=== PATIENT | male | born 1970 | race Caucasian/White ===

== ENCOUNTER → 2021-10-23 07:33 | Outpatient (CLI) | payer OTHER, SELFPAY | PROVIDERS: PCP Family Medicine; Visit Provider Family Medicine | DX: Z23 Encounter for immunization (principal) ==

== ENCOUNTER 2025-05-23 11:50 | Inpatient (IN) | payer BC, SELFPAY ==
[2025-05-23] VITALS (16 sets, daily range): BP systolic 136–187; BP diastolic 81–104; PULSE 66–111; RESP 12–24; TEMP 36.6–36.9; O2SAT 96–99; BMI 46.2
--- NOTE | 2025-05-23 12:08 | EKG12_ITS ---
Test Reason : CP Blood Pressure : */* mmHG Vent. Rate : 105 BPM Atrial Rate : 105 BPM P-R Int : 154 ms QRS Dur : 92 ms QT Int : 336 ms P-R-T Axes : 21 -35 -16 degrees QTcB Int : 444 ms Sinus tachycardia Left axis deviation ST & T wave abnormality, consider anterolateral ischemia Abnormal ECG No previous ECGs available Confirmed by Alejandro Fermin ([id number]), assistant production editor REYES PATE ([id number]) on 05/26/2025 11:34:17 AM Referred By: Confirmed By: Alejandro Fermin
--- NOTE | 2025-05-23 12:09 | ED.VIS.CHEST ---
HPI History of Present Illness Chief Complaint: Chest Pain Informant: patient Onset/Context/Timing Onset: Yesterday Activity at onset: sudden Timing: Continuous Quality: Positive for Dull Location: Substernal Worsened By: Nothing and - Relieved By: - (Elevating his arms above his head) Associated Symptoms: Negative for Nausea, Vomiting, Diaphoresis, Dyspnea, Cough, Fever, Lightheadedness, Acid Reflux or Palpitations Narrative Narrative: Patient presents with chest pain that began yesterday. Patient states he was eating dinner yesterday when the pain began. Patient states it has been constant since yesterday. Patient describes it as dull. Patient states it is over the substernal area. Patient states it is better when he is able to elevate his arms above his head. Patient states nothing makes it worse. Patient denies any nausea or vomiting. Patient denies any shortness of breath or cough. Patient denies any diaphoresis or lightheadedness. Patient denies any palpitations. CVD Risk Factors: Positive for Hypercholesterolemia and Family History 1' </=55; Negative for Hypertension, Diabetes or Smoking PE Risk Factors: Negative for Recent Travel/Surgery, Recent Immobilization, Prior DVT or PE, Cancer or OCP + Smoking + >/=35 PFSH PFSH Medical History CKD (chronic kidney disease), stage II Morbid obesity Hypercholesterolemia Home Medications ?Medication ?Instructions ?Recorded ?Last Taken ?Type NK 05/23/25 Unknown History Allergy/AdvReac Type Severity Reaction Status Date / Time No Known Allergies Allergy Verified 05/23/25 11:52 Surgical History Hx of knee surgery Social History Smoking Status: Never smoker alcohol intake: current alcohol intake frequency: holidays/special occasions only Alcohol type: beer ROS ROS ED Constitutional Constitutional ED: Denies chills or fever(s) Eyes Eyes: Denies blurry vision or change in vision ENT ENT ED: Denies rhinorrhea or sore throat Cardiovascular Cardiovascular: Reports chest pain; Denies palpitations Respiratory/Chest Respiratory/Chest: Denies cough or dyspnea Gastrointestinal Gastrointestinal: Denies nausea or vomiting Genitourinary Genitourinary ED: Denies dysuria or hematuria Musculoskeletal Musculoskeletal: Denies back pain or neck pain Integumentary Denies abscess or rash Neurologic Neurologic: Denies headache(s) or weakness Allergic/Immunologic Allergic/Immunologic ED: Denies mouth swelling or urticaria EXAM Physical Exam Const Vital Signs: 05/23/25 11:51 05/23/25 12:22 05/23/25 12:27 Temperature 98.2 F Temperature Source Oral Pulse Rate 111 H 85 Respiratory Rate 18 Respiratory Effort Respiratory Pattern Blood Pressure 184/104 H 187/99 H Blood Pressure Mean 130 Pulse Ox 97 Oxygen Delivery Method Room Air Room Air 05/23/25 12:27 05/23/25 12:50 05/23/25 12:50 Temperature Temperature Source Pulse Rate 84 86 Respiratory Rate 20 H Respiratory Effort Normal Respiratory Pattern Normal Blood Pressure 142/81 H 142/81 H Blood Pressure Mean 101 Pulse Ox 98 Oxygen Delivery Method Room Air 05/23/25 13:14 05/23/25 13:15 05/23/25 13:18 Temperature Temperature Source Pulse Rate 91 83 89 Respiratory Rate 24 H 16 Respiratory Effort Respiratory Pattern Blood Pressure 143/85 H 143/85 H Blood Pressure Mean 103 Pulse Ox 98 97 Oxygen Delivery Method Room Air 05/23/25 13:30 05/23/25 13:45 05/23/25 14:00 Temperature Temperature Source Pulse Rate 78 66 69 Respiratory Rate 13 12 13 Respiratory Effort Respiratory Pattern Blood Pressure 145/85 H 138/83 H Blood Pressure Mean 103 99 Pulse Ox 96 98 98 Oxygen Delivery Method Room Air Room Air 05/23/25 15:00 Temperature Temperature Source Pulse Rate 86 Respiratory Rate 12 Respiratory Effort Respiratory Pattern Blood Pressure 158/96 H Blood Pressure Mean 116 Pulse Ox 99 Oxygen Delivery Method Room Air Positive well nourished and well developed Constitutional Narrative: BMI is 46.3. General Appearance ED: well developed and NAD HEENT Reports moist mucous membranes Neck supple and no JVD Resp normal respiratory effort and clear to auscultation bilaterally Cardio regular rate and regular rhythm GI soft to palpation, non-tender and non-distended Extremity normal to inspection Neuro oriented x3, CN's II-XII intact bilaterally and no sensory deficits noted Sensorium / Orientation: awake and alert Motor Exam: strength 5/5 throughout Psych mental status grossly normal Heart Score History: Slightly/Non-Suspicious ECG: Significant ST-Depression Age: >45 - <65 years Risk Factors: 1 or 2 Risk Factors Troponin: >1 - <3 Normal Limit Score: 5 MDM MDM MDM Narrative Medical decision making narrative: Differential diagnosis includes cardiac dysrhythmia, cardiac ischemia, electrolyte abnormality, pneumonia, bronchitis, pulmonary embolism, electrolyte abnormality, gastroesophageal reflux disease, and anxiety. EKG will be obtained to assess for cardiac dysrhythmia and cardiac ischemia chest x-ray will be obtained to assess for pneumonia or bronchitis. CBC will be obtained to assess for leukocytosis and anemia. Basic metabolic profile will be obtained to assess for electrolyte abnormality and renal function. High-sensitivity troponin will be obtained to assess for cardiac ischemia. D-dimer will be obtained to assess for pulmonary embolism. 2-hour repeat high-sensitivity troponin will be obtained to assess for ongoing cardiac ischemia. Lab Data Attestation: I reviewed the patient's lab results. Lab results narrative: CBC was reviewed and was within normal limits. D-dimer was repeated and was normal at 0.39. Basic metabolic profile was reviewed. Creatinine was slightly elevated at 1.26. The remainder is within normal limits. Initial high-sensitivity troponin was reviewed and was slightly elevated at 49. 2-hour repeat high-sensitivity troponin was reviewed and was elevated at 71. Labs: Laboratory Results - last 24 hr 05/23/25 05/23/25 12:15 14:07 WBC 5.4 RBC 5.46 Hgb 15.5 Hct 45.5 MCV 83.3 MCH 28.4 MCHC 34.1 RDW Std Deviation 38.2 RDW Coeff of Basil 12.7 Plt Count 167 MPV 10.0 Immature Gran % (Auto) 0.400 Neut % (Auto) 74.3 H Lymph % (Auto) 14.6 L Rowan % (Auto) 7.6 Eos % (Auto) 2.4 Baso % (Auto) 0.7 Absolute Neuts (auto) 4.0 Absolute Lymphs (auto) 0.79 L Nucleated RBC % 0 D-Dimer Quant (PE/DVT) 0.39 Sodium 135 Potassium 4.4 Chloride 102 Carbon Dioxide 22.4 Anion Gap 11 BUN 13 Creatinine 1.26 H Estim Creat Clear Calc 89.11 Est GFR (MDRD) Non-Af 67 BUN/Creatinine Ratio 10.3 Glucose 150 H Calcium 9.0 Troponin T High Sens 49 H Troponin T Hi Sens 2 Hr 71 H* Radiography Chest X-Ray - ED: 1 View, Read by ED Physician, Read by Radiologist and No Acute Disease Diagnostic Testing: Clinical Impression(s) from Imaging Studies Chest X-Ray 05/23/25 12:20 IMPRESSION: Negative Chest. Reading Location: [facility] Portable 1 view chest x-ray was obtained. On my independent interpretation, lung ball are clear. There is normal cardiac silhouette. Bony thorax is normal. There is no acute process noted. Radiologist also interpreted the x-ray and agrees. EKG Initial EKG: Attestation: I personally reviewed and interpreted this EKG as follows: Interpretation: Sinus Tachycardia (105) and S-T Depression (II, aVF, V3 through V6) Comments: EKG was obtained. On my independent interpretation, shows sinus tachycardia with rate of 105. NE interval is normal at 154 ms. QRS interval was normal at 92 ms. QTc interval was normal at 444 ms. There is left axis deviation -35. There is some nonspecific ST depression in leads II, aVF, and V3 through V6. There are no prior EKGs available for comparison. Prior EKG tracings: not available for review Prior: No Prior Management Discussion w/another healthcare provider: Hospitalist (Dr. Sanchez) and [employer] Pipe Gauger (Dr. Casper) Treatment and Re-Evaluation :: Patient was given aspirin and nitroglycerin initially. Patient had no improvement with nitroglycerin. Patient was given a dose of morphine. Patient felt better after this. Case was discussed with the hospitalist. She recommended contacting cardiology. Case was discussed with director of the biophysics facility. He recommended starting patient on heparin. This was ordered. Patient will be admitted to the hospitalist. Patient understood and was agreeable with the plan. All questions were answered. Discharge Plan Triage Chief Complaint: Chest Pain ED Provider: César De Paz Dx/Rx/DC Orders Clinical Impression: Non-STEMI (non-ST elevated myocardial infarction), Hypercholesterolemia, Chest pain, Elevated blood pressure reading without diagnosis of hypertension Prescriptions: No Action NK Primary Care Provider: Sotero Carrion Referrals: Sotero Carrion MD [Primary Care Provider] - Print Language: Luxembourgish Disposition Disposition: [facility]
--- NOTE | 2025-05-23 12:20 | RAD_ITS ---
PROCEDURE: CHEST 1 VIEW (PORTABLE) 05/23/2025 REASON FOR EXAM: CHEST PAIN TECHNIQUE: Frontal view of the chest. COMPARISON: None. FINDINGS: Hardware: None. Heart: The heart size is normal. Lungs: No focal consolidation, pleural effusion or pneumothorax. Bones: The bones are unremarkable. RAD/Chest 1 View (Portable) IMPRESSION: Negative Chest. Reading Location: [id number]
[2025-05-23] MEDS: Nitroglycerin SL (ED/IMG/CATH) 0.4 MG TABLET SL ×3 (12:22→13:18)
[2025-05-23 12:43] LABS: Hematocrit 45.5 % (40-54); Hemoglobin 15.5 g/dL (13.0-16.5); Immature Granulocytes Count 0.020 X10^3/uL (0.0-0.0); Mean Corp Hgb Conc 34.1 g/dL (32-36); Mean Corpuscular Volume 83.3 fL (80-94); Mean Platelet Vol. 10.0 fl (6.2-12.0); NRBC Flagged by Analyzer 0 % (0-5); Platelet Count 167 K/mm3 (150-450); RBC Distribution Width CV 12.7 % (11.6-14.6); RBC Distribution Width SD 38.2 fl (35.1-43.9); Red Blood Count 5.46 M/mm3 (4.6-6.2); White Blood Count 5.4 K/mm3 (4.4-11.0)
[2025-05-23 12:47] LABS: D-Dimer Quantitative (DVT/PE) 0.39 FEU/ug/m (0.27-0.49)
--- OUTSIDE RECORDS SUMMARY | 2025-05-23 12:51 | XMS RPT_ITS | CCD ---
Author Organization [facility] Inform ion Partnership [facility] Care Team Providers Care Business Strategy Manager Name Role Phone Jordy Ritchie MD Primary Care Provider [phone] Jordy Ritchie MD Primary Care Provider [phone] Robert CUADRA.CHEF SAUCIER, Vani Unavailable Gabriela Hutchins PA-C Unavailable [phone] JORDY RITCHIE Primary Care Unavailable Jordy Ritchie MD Primary Care Provider Allergies Allergy Classification Reported Allergen(s) Allergy Type Date of Onset Reaction(s) Facility (4 sources) Pravastatin; Translations: [PRAVASTATIN] Drug Allergy 02-09-2013 Intolerance [facility] Work Phone: Medications Current Medications Medication Drug Class(es) Dates Sig (Normalized) Sig (Original) aspirin 81 mg oral tablet (3 sources) Platelet Aggregation Inhibitor, Nonsteroidal Anti-inflammatory Drug Start: 07-02-2012 take 1 tablet by mouth once daily at mealtime Aspirin 81 mg Tab Indications: Family history of coronary artery disease Take 1 tablet by mouth once daily. Take with food. 30 tablet 11 07/02/2012 Active Comment on above: Take 1 tablet by robson th once daily. Take with food. doxycycline monohydrate 100 mg oral tablet (1 source) Tetracycline-class Drug Start: 09-04-2023 End: 09-09-2023 take 1 tablet by mouth twice daily doxycycline monohydrate 100 mg tablet Indications: Hordeolum externum of right upper eyelid , Skin infection Take 1 tablet by mouth two times a day for 5 days. 10 tablet 0 09/04/2023 09/09/2023 Active Comment on above: Take 1 tablet by robson th two times a day for 5 days. polymyxin b [id number] unt/ml / trimethoprim 1 mg/ml ophthalmic solution (1 source) Dihydrofolate Reductase Inhibitor Antibacterial, Polymyxin-class Antibacterial Start: 09-04-2023 End: 09-11-2023 take 1 drop(s) into the eye(s) every four hours trimethoprim-poly myxin (POLYTRIM) 10,000 unit- 1 mg/mL ophthalmic solution Indications: Hordeolum externum of right upper eyelid Use 1 Drop in the right eye every 4 hours for 7 days. 10 mL 0 09/04/2023 09/11/2023 Active Comment on above: Use 1 Drop in the ri ght eye every 4 hours for 7 days. simvastatin 10 mg oral tablet (3 sources) HMG-CoA Reductase Inhibitor Start: 10-20-2021 take 1 tablet by mouth once daily at bedtime for hyperlipidemia simvastatin (ZOCOR) 10 mg tablet Take 1 tablet by mouth daily at bedtime. For cholesterol. 90 tablet 1 10/20/2021 Active Comment on above: Take 1 tablet by robson th daily at bedtime. For cholesterol. Problems Active Problems Problem Classification Problem Date Documented Da te Episodic/Chronic Disorders of lipid metabolism (3 sources) Mixed hyperlipidemia; Translations: [Mixed hyperlipidemia] Onset: 12-23-2014 10-20-2015 Chronic Inflammation; infection of eye (except that caused by tuberculosis or sexually transmitteddisease) (1 source) Hordeolum externum of upper eyelid of right eye; Translations: [Hordeolum externum right upper eyelid] 09-04-2023 Episodic Other nutritional; endocrine; and metabolic disorders (3 sources) Body mass index 40+ - severely obese; Translations: [Morbid (severe) obesity due to excess calories] Onset: 03-20-2018 10-22-2019 Chronic Other upper respiratory infections (2 sources) Sore throat symptom; Translations: [Acute pharyngitis, unspecified] 01-26-2025 Episodic Skin and subcutaneous tissue infections (1 source) Infection of skin; Translations: [Local infection of the skin and subcutaneous tissue, unspecified] 09-04-2023 Episodic Past or Other Problems Problem Classification Problem Date Documented Da te Episodic/Chronic Blindness and vision defects (3 sources) Diplopia; Translations: [Diplopia] Onset: 11-13-2007 12-27-2021 Episodic Genitourinary symptoms and ill-defined conditions (3 sources) Microscopic hematuria; Translations: [Other microscopic hematuria] Onset: 04-30-2017 05-27-2017 Episodic Other circulatory disease (3 sources) Elevated blood-pressure reading without diagnosis of hypertension; Translations: [Elevated blood-pressure reading, without diagnosis of hypertension] Onset: 04-30-2017 04-30-2017 Episodic Residual codes; unclassified (3 sources) Family history of coronary arteriosclerosis; Translations: [Family history of ischemic heart disease and other diseases of the circulatory system] Onset: 07-02-2012 10-24-2016 Episodic Results Test Name Value Interpretation Reference Range Facil ity CNOVon 01-26-2025 CNOV Office Visit (UCWSTR ) ROBBIN,DEDRA Ploa ([id number]) 1970 M Date Time Provider Department 01/26/25 11:00 AM CLARE HOWELL [facility] During your visit today, we recorded the following information about you: Temperature Pulse Respiration Blood pressure 99.1 degrees 98/minute 16/minute 130/78 Weight 137.2 kg Clare Howell APRN.CNP 01/26/2025 11:31 AM Signed [facility] Subjective Dedra A Robbin is a 54 year old male. Patient presents with: Fever: Fever, MARY, sinus and congestion x 3 days Patient came in with complaints of fever congestion cough sore throat for 3 days. Patient says it does hurt worse to swallow. Patient denies any shortness of breath or other symptoms. Patient was exposed to influenza A. Patient said he did do a home test and it was negative. The history is provided by the patient. No screening technician was used. Fever Associated symptoms include sore throat and cough. Review of Systems Constitutional: Positive for fever. HENT: Positive for sinus pressure and sore throat. Respiratory: Positive for cough. Objective BP 130/78 Pulse 98 Temp 37.3 ?C (99.1 ?F) (Tympanic) Resp 16 Wt (!) 137.2 kg (302 lb 7.5 oz) SpO2 96% BMI 45.32 kg/m? Physical Exam Constitutional: Appearance: Normal appearance. HENT: Right Ear: Tympanic membrane, ear canal and external ear normal. Left Ear: Tympanic membrane, ear canal and external ear normal. Mouth/Throat: Mouth: Mucous membranes are moist. Eyes: Pupils: Pupils are equal, round, and reactive to light. Cardiovascular: Rate and Rhythm: Normal rate and regular rhythm. Heart sounds: Normal heart sounds. Pulmonary: Effort: Pulmonary effort is normal. Breath sounds: Normal breath sounds. Neurological: Mental Status: He is alert. PAST MEDICAL HISTORY Diagnosis Date Diplopia 09/23/2007 Was felt to be secondary to a blood flow issue with tilting head to right. Has been on baby ASA an no issue since. Family history of coronary artery disease 07/02/2012 Mixed hyperlipidemia 12/23/2014 Obesity, Class III, BMI 40-49.9 (morbid obesity) ([facility]) 03/20/2018 PAST SURGICAL HISTORY Procedure Laterality Date PAST SURGICAL HISTORY OF Left knee surgery, scare tissue remove ALLERGIES Pravastatin MEDICATIONS simvastatin (ZOCOR) 10 mg tablet Take 1 tablet by mouth daily at bedtime. For cholesterol. (Patient not taking: Reported on 01/26/2025) Aspirin 81 mg Tab Take 1 tablet by mouth once daily. Take with food. (Patient not taking: Reported on 01/26/2025) FAMILY HISTORY Problem Relation Age of Onset Diabetes Father Seizures Father possible epileptic Lipids Father Heart Mother leaking artery, bypass surgery (late 50's) Hypertension Mother Stroke Mother multiple, Rt upper ext weakness Coronary Artery Disease Mother 56 Coronary Artery Disease Brother Fatal [place] age 48 Stroke Sister 58 Social History Tobacco Use Smoking status: Never Smokeless tobacco: Never Vaping Use Vaping status: Never Used Substance Use Topics Alcohol use: Yes Comment: rarely Drug use: No {ASSESSMENT/PLAN: 1. Sore throat - ICD9: 462, ICD10: J02.9 (primary diagnosis) - Group A strep molecular testing negative - Discussed supportive care treatment with fluids, rest and analgesia. - Contagious dz precautions discussed- including considered contagious until on antibiotics for 24 hours - STREP A MOLECULAR (POC) 2. URI, acute - ICD9: 465.9, ICD10: J06.9 - Discussed viral etiology and rationale for treatment. - Symptomatic treatment with prn analgesia - Supportive care with fluids and rest - COVID AND INFLUENZA A/B AND RSV PCR, ROUTINE Clare Howell APRN.CHEF SAUCIER MDM Procedures Allergies As of Date: 01/26/2025 Noted Allergy Reaction PRAVASTATIN 02/09/2013 5 - Intolerance Comments: muscle pain Date Reviewed: 01/26/2025 Reviewed by: Shira Menjivar LPN - Fully Assessed Reason for Visit: Fever [47] Cmt: Fever, MARY, sinus and congestion x 3 days Primary Visit Diagnosis:Sore throat [J02.9] Other Visit Diagnosis:URI, acute [J06.9] Order(s):COVID AND INFLUENZA A/B AND RSV PCR, ROUTINE [SQCVFLRS] Order #: [id number]. #:[id number] STREP A MOLECULAR (POC) [2642181] Order #: [id number]. #:[id number] Prescriptions as of 01/26/2025 - simvastatin (ZOCOR) 10 mg tablet Take 1 tablet by mouth daily at bedtime. For cholesterol. - Aspirin 81 mg Tab Take 1 tablet by mouth once daily. Take with food. Problem List As Of Date 01/26/2025 Noted Resolved Diplopia [H53.2] 09/23/2007 Family history of coronary artery disease [Z82.*07/02/2012 Mixed hyperlipidemia [E78.2] 12/23/2014 Well adult exam [Z00.00] 10/20/2015 Microscopic hematuria [R31.29] 04/30/2017 Elevated blood pressure reading in office witho*04/30/2017 Obesity, Class III, BMI 40-49.9 (morbid obesity*03/20/2018 En (more content not included)... Normal [facility] STREP A MOLECULAR (POC)on Procedural Control Valid [facility] Strep A (POCT) Negative Negative [facility] Clin ic Vital Signs Date Time Vital Sign Value Performing Clinician Faci lity 01-26-2025 11:05-0400 Body mass index (BMI) [Ratio] 45.32 kg/m2 Clare Howell APRN.CNP Work Phone: [facility] 01-26-2025 11:05-0400 Body temperature 99.1 [degF] Clare Howell APRN.CHEF SAUCIER Work Phone: [facility] 01-26-2025 11:05-0400 Body weight 137.2 kg Clare Howell APRN.CHEF SAUCIER Work Phone: [facility] 01-26-2025 11:05-0400 Diastolic blood pressure 78 mm[Hg] Clare Howell APRN.CHEF SAUCIER Work Phone: [facility] 01-26-2025 11:05-0400 Heart rate 98 /min Clare Howell APRN.CHEF SAUCIER Work Phone: [facility] 01-26-2025 11:05-0400 Respiratory rate 16 /min Clare Howell APRN.CHEF SAUCIER Work Phone: [facility] 01-26-2025 11:05-0400 SaO2% (BldA) [Mass fraction] 96 % Clare Howell APRN.CHEF SAUCIER Work Phone: [facility] 01-26-2025 11:05-0400 Systolic blood pressure 130 mm[Hg] Clare Howell APRN.CHEF SAUCIER Work Phone: [facility] 09-04-2023 12:15-0400 Body temperature 98.1 [degF] Clare Howell APRN.CHEF SAUCIER Work Phone: [facility] 09-04-2023 12:15-0400 Body weight 135.04 kg Clare Howell APRN.CHEF SAUCIER Work Phone: [facility] 09-04-2023 12:15-0400 Diastolic blood pressure 70 mm[Hg] Clare Howell APRN.CHEF SAUCIER Work Phone: [facility] 09-04-2023 12:15-0400 Heart rate 68 /min Clare Howell APRN.CHEF SAUCIER Work Phone: [facility] 09-04-2023 12:15-0400 Respiratory rate 16 /min Clare Howell APRN.CHEF SAUCIER Work Phone: [facility] 09-04-2023 12:15-0400 SaO2% (BldA) [Mass fraction] 98 % Clare Howell APRN.CHEF SAUCIER Work Phone: [facility] 09-04-2023 12:15-0400 Systolic blood pressure 122 mm[Hg] Clare Howell APRN.CHEF SAUCIER Work Phone: [facility] Encounters Encounter Date Encounter Type Care Provider Facility Start: 01-26-2025 End: 03-28-2025 Follow-up encounter Clare Howell APRN.CHEF SAUCIER Work Phone: [facility] Start: 01-26-2025 End: 01-26-2025 ambulatory JORDY RITCHIE Facility:[facility] Start: 01-26-2025 End: 01-26-2025 Patient encounter procedure Clare Howell APRN.CHEF SAUCIER Work Phone: [facility] Comment on above: Sore throat (Primary Dx); URI, acute Start: 09-04-2023 End: 09-04-2023 Patient encounter procedure Clare Howell APRN.CHEF SAUCIER Work Phone: [facility] Comment on above: Hordeolum externum o f right upper eyelid (Primary Dx); Skin infection Start: 10-22-2019 Patient encounter status Clare Howell APRN.CHEF SAUCIER Work Phone: [facility] Work Phone: Procedures Date Procedure Procedure Detail Performing Clinician Start: 01-26-2025 STREP A MOLECULAR (POC) Clare Howell APRN.CHEF SAUCIER Work Phone: Start: 10-20-2021 Lipid 1996 panel - S lavinia or Plasma Clare Howell APRN.CHEF SAUCIER Work Phone: Plan of Treatment Date Care Activity Detail Author Start: 10-20-2026 Lipid 1996 panel - Serum or Plasma Lipid Screening [facility] Start: 10-20-2026 Lipid panel Lipid Screening [facility] Start: 07-12-2025 Influenza vaccination Influenza Vaccine (Season Ended) [facility] Start: 04-21-2025 Urine microalbumin profile DTaP,Tdap,Td Vaccine (2 - Td or Tdap) [facility] Start: 10-23-2024 Prostate Cancer Screening Discussion Prostate Cancer Screening Discussion [facility] Start: 10-23-2024 Prostate specific antigen measurement Prostate Cancer Screening Discussion [facility] Start: 10-20-2024 Diabetes Screening Diabetes Screening [facility] Start: 07-12-2024 Covid-19 Vaccine () Covid-19 Vaccine () [facility] Start: 07-12-2024 Influenza vaccination Influenza Vaccine (#1) [facility] Start: 07-12-2023 Covid-19 Vaccine () Covid-19 Vaccine () [facility] Start: 07-12-2023 Influenza vaccination Influenza Vaccine (#1) [facility] Start: 11-11-2022 Depression Assessment Depression Assessment [facility] Start: 2018 Pneumococcal Vaccine: 50+ (1 of 1 - PCV) Pneumococcal Vaccine: 50+ (1 of 1 - PCV) [facility] Start: 2018 Shingrix Vaccine (1 of 2) Shingrix Vaccine (1 of 2) [facility] Start: 2013 Cologuard (FIT-DNA) Cologuard (FIT-DNA) [facility] Start: 2013 Colonoscopy Colonoscopy [facility] Start: 2013 Colorectal Cancer Screening Colorectal Cancer Screening [facility] Start: [address] Colonography [facility] Start: 2013 Fecal Occult Blood Fecal Occult Blood [facility] Start: 2013 Screening for malignant neoplasm of colon [facility] Start: 2013 Sigmoidoscopy Sigmoidoscopy [facility] Start: 1987 Hepatitis B Vaccine (1 of 3 - 19+ 3-dose series) Hepatitis B Vaccine (1 of 3 - 19+ 3-dose series) [facility] Start: 1986 Anxiety Screening Anxiety Screening [facility] Start: 1986 Depression Screening Depression Screening [facility] Start: 1986 HIV Screening HIV Screening [facility] Start: 1986 HIV screening HIV Screening [facility] Start: 1968 Hepatitis B Vaccine (1 of 3 - 3-dose series) Hepatitis B Vaccine (1 of 3 - 3-dose series) [facility] COVID & INFLUENZA A/ B & RSV PCR, ROUTINE COVID & INFLUENZA A/B & RSV PCR, ROUTINE Microbiology Routine URI, acute 01/26/2025 11:23 AM EDT [facility] Work Phone: Immunizations Immunization Date Immunization Notes Care Provider Dennis kayaadalberto 10-24-2016 influenza virus vaccine, unspecified formulation Clare Howell APRN.CHEF SAUCIER Work Phone: [facility] 04-21-2015 tetanus toxoid, redu claudio diphtheria toxoid, and acellular pertussis vaccine, adsorbed Clare Howell APRN.CHEF SAUCIER Work Phone: [facility] Work Phone: 11-11-2002 tetanus and diphther ia toxoids, adsorbed, preservative free, for adult use (2 Lf of tetanus toxoid and 2 Lf of diphtheria toxoid) Clare Howell APRN.CHEF SAUCIER Work Phone: [facility] Work Phone: Payers Date Payer Category Payer [facility] PPO [id number] 2022 Unknown [id number] Social History Date Type Detail Facility Start: 09-04-2023 Tobacco smoking stat us MDIS Never smoked tobacco [facility] Start: 09-04-2023 Tobacco use and exposure Smoke less tobacco non-user [facility] Start: 09-04-2023 End: 01-26-2025 Alcohol intake Current drinker of alcohol (finding) [facility] Start: 10-16-2020 End: 10-19-2021 History of Social function [facility] Start: 10-16-2020 End: 10-19-2021 Social connection and isolation panel [facility] In a typical week, h ow many times do you talk on the telephone with family, friends, or neighbors? Patient refused [facility] Are you now , , , , never or living with a partner? Refused [facility] How often to you hav e a drink containing alcohol? Never [facility] Do you feel stress - tense, restless, nervous, or anxious, or unable to sleep at night because your mind is troubled all the time - these days [OSQ] To some extent [facility] (I/We) worried wheth er (my/our) food would run out before (I/we) got money to buy more. Never true [facility] In the past 12 month s, was there a time when you were not able to pay the mortgage or rent on time? No [facility] Start: 10-16-2019 Education 16 [facility] Start: 1970 Sex Assigned At Not on file C [facility] Functional Status Date Assessment Result Facility 04-21-2015 Are you deaf, or do you have serious difficulty hearing No 04/21/2015 8:23 AM EDT Lorena Lagunas LPN No [facility] 04-21-2015 Are you blind, or do you have serious difficulty seeing, even when wearing glasses No 04/21/2015 8:23 AM EDT Lorena Lagunas LPN No [facility] 04-21-2015 Do you have serious difficulty walking or climbing stairs No 04/21/2015 8:23 AM EDT Lorena Lagunas LPN No [facility] 04-21-2015 Do you have difficul ty dressing or bathing No 04/21/2015 8:23 AM EDT Lorena Lagunas LPN No [facility] 04-21-2015 Because of a physica l, mental, or emotional condition, do you have difficulty doing errands alone such as visiting a physician's office or shopping No 04/21/2015 8:23 AM EDT oLrena Lagunas LPN No [facility] Mental Status Date Assessment Result Facility 04-21-2015 Because of a physica l, mental, or emotional condition, do you have serious difficulty concentrating, remembering, or making decisions No 04/21/2015 8:23 AM EDT Lorena Lagunas BRENDON No [facility] Clinical Note 01-26-2025 Note Date & Type Note Facility 01-26-2025 Note SARS-COV-2 (AGENT OF COVID-19) RNA: Not detected INFLUENZA A RNA: Not detected INFLUENZA B RNA: Not detected RESPIRATORY SYNCYTIAL VIRUS (RSV) RNA: Not detected [facility] Comment on above: Performed By: #### [id number] #### [facility] CLIA [id number] [address] [place] [address] [facility] [place] Progress note 01-26-2025 Note Date & Type Note Facility 01-26-2025 Note HNO ID: [id number] Author: CLARE HOWELL APRN.CHEF SAUCIER Service: ? Author Type: Nurse Practitioner Type: Progress Notes Filed: 01/26/2025 11:31 Note Text: [facility] Subjective Dedra Romero is a 54 year old male. Patient presents with: Fever: Fever, MARY, sinus and congestion x 3 days Patient came in with complaints of fever congestion cough sore throat for 3 days. Patient says it does hurt worse to swallow. Patient denies any shortness of breath or other symptoms. Patient was exposed to influenza A. Patient said he did do a home test and it was negative. The history is provided by the patient. No screening technician was used. Fever Associated symptoms include sore throat and cough. Review of Systems Constitutional: Positive for fever. HENT: Positive for sinus pressure and sore throat. Respiratory: Positive for cough. Objective BP 130/78 Pulse 98 Temp 37.3 ?C (99.1 ?F) (Tympanic) Resp 16 Wt (!) 137.2 kg (302 lb 7.5 oz) SpO2 96% BMI 45.32 kg/m? Physical Exam Constitutional: Appearance: Normal appearance. HENT: Right Ear: Tympanic membrane, ear canal and external ear normal. Left Ear: Tympanic membrane, ear canal and external ear normal. Mouth/Throat: Mouth: Mucous membranes are moist. Eyes: Pupils: Pupils are equal, round, and reactive to light. Cardiovascular: Rate and Rhythm: Normal rate and regular rhythm. Heart sounds: Normal heart sounds. Pulmonary: Effort: Pulmonary effort is normal. Breath sounds: Normal breath sounds. Neurological: Mental Status: He is alert. PAST MEDICAL HISTORY Diagnosis Date Diplopia 09/23/2007 Was felt to be secondary to a blood flow issue with tilting head to right. Has been on baby ASA an no issue since. Family history of coronary artery disease 07/02/2012 Mixed hyperlipidemia 12/23/2014 Obesity, Class III, BMI 40-49.9 (morbid obesity) (HCC) 03/20/2018 PAST SURGICAL HISTORY Procedure Laterality Date PAST SURGICAL HISTORY OF Left knee surgery, scare tissue remove ALLERGIES Pravastatin MEDICATIONS simvastatin (ZOCOR) 10 mg tablet Take 1 tablet by mouth daily at bedtime. For cholesterol. (Patient not taking: Reported on 01/26/2025) Aspirin 81 mg Tab Take 1 tablet by mouth once daily. Take with food. (Patient not taking: Reported on 01/26/2025) FAMILY HISTORY Problem Relation Age of Onset Diabetes Father Seizures Father possible epileptic Lipids Father Heart Mother leaking artery, bypass surgery (late 50's) Hypertension Mother Stroke Mother multiple, Rt upper ext weakness Coronary Artery Disease Mother 56 Coronary Artery Disease Brother Fatal [place] age 48 Stroke Sister 58 Social History Tobacco Use Smoking status: Never Smokeless tobacco: Never Vaping Use Vaping status: Never Used Substance Use Topics Alcohol use: Yes Comment: rarely Drug use: No {ASSESSMENT/PLAN: 1. Sore throat - ICD9: 462, ICD10: J02.9 (primary diagnosis) - Group A strep molecular testing negative - Discussed supportive care treatment with fluids, rest and analgesia. - Contagious dz precautions discussed- including considered contagious until on antibiotics for 24 hours - STREP A MOLECULAR (POC) 2. URI, acute - ICD9: 465.9, ICD10: J06.9 - Discussed viral etiology and rationale for treatment. - Symptomatic treatment with prn analgesia - Supportive care with fluids and rest - COVID AND INFLUENZA A/B AND RSV PCR, ROUTINE Clare Howell APRN.ELIZABETH MDM Procedures [facility] History of Present illness Narrative 01-26-2025 Clare Howell APRN.CNP - 01/26/2025 11:12 AM EDT Note Date & Type Note Facility 01-26-2025 History of Presen t illness Narrative [facility] Subjective Dedra Romero is a 54 year old male. Patient presents with: Fever: Fever, MARY, sinus and congestion x 3 days Patient came in with complaints of fever congestion cough sore throat for 3 days. Patient says it does hurt worse to swallow. Patient denies any shortness of breath or other symptoms. Patient was exposed to influenza A. Patient said he did do a home test and it was negative. The history is provided by the patient. No screening technician was used. Fever Associated symptoms include sore throat and cough. Review of Systems Constitutional: Positive for fever. HENT: Positive for sinus pressure and sore throat. Respiratory: Positive for cough. Objective BP 130/78 Pulse 98 Temp 37.3 C (99.1 F) (Tympanic) Resp 16 Wt (!) 137.2 kg (302 lb 7.5 oz) SpO2 96% BMI 45.32 kg/m Physical Exam Constitutional: Appearance: Normal appearance. HENT: Right Ear: Tympanic membrane, ear canal and external ear normal. Left Ear: Tympanic membrane, ear canal and external ear normal. Mouth/Throat: Mouth: Mucous membranes are moist. Eyes: Pupils: Pupils are equal, round, and reactive to light. Cardiovascular: Rate and Rhythm: Normal rate and regular rhythm. Heart sounds: Normal heart sounds. Pulmonary: Effort: Pulmonary effort is normal. Breath sounds: Normal breath sounds. Neurological: Mental Status: He is alert. PAST MEDICAL HISTORY Diagnosis Date Diplopia 09/23/2007 Was felt to be secondary to a blood flow issue with tilting head to right. Has been on baby ASA an no issue since. Family history of coronary artery disease 07/02/2012 Mixed hyperlipidemia 12/23/2014 Obesity, Class III, BMI 40-49.9 (morbid obesity) ([facility]) 03/20/2018 PAST SURGICAL HISTORY Procedure Laterality Date PAST SURGICAL HISTORY OF Left knee surgery, scare tissue remove ALLERGIES Pravastatin MEDICATIONS simvastatin (ZOCOR) 10 mg tablet Take 1 tablet by mouth daily at bedtime. For cholesterol. (Patient not taking: Reported on 01/26/2025) Aspirin 81 mg Tab Take 1 tablet by mouth once daily. Take with food. (Patient not taking: Reported on 01/26/2025) FAMILY HISTORY Problem Relation Age of Onset Diabetes Father Seizures Father possible epileptic Lipids Father Heart Mother leaking artery, bypass surgery (late 50's) Hypertension Mother Stroke Mother multiple, Rt upper ext weakness Coronary Artery Disease Mother 56 Coronary Artery Disease Brother Fatal [place] age 48 Stroke Sister 58 Social History Tobacco Use Smoking status: Never Smokeless tobacco: Never Vaping Use Vaping status: Never Used Substance Use Topics Alcohol use: Yes Comment: rarely Drug use: No {ASSESSMENT/PLAN: 1. Sore throat - ICD9: 462, ICD10: J02.9 (primary diagnosis) - Group A strep molecular testing negative - Discussed supportive care treatment with fluids, rest and analgesia. - Contagious dz precautions discussed- including considered contagious until on antibiotics for 24 hours - STREP A MOLECULAR (POC) 2. URI, acute - ICD9: 465.9, ICD10: J06.9 - Discussed viral etiology and rationale for treatment. - Symptomatic treatment with prn analgesia - Supportive care with fluids and rest - COVID & INFLUENZA A/B & RSV PCR, ROUTINE Clare Howell APRN.ELIZABETH MDM Procedures documented in this encounter [facility] History of Present illness Narrative 09-04-2023 Clare Howell APRN.ELIZABETH - 09/04/2023 12:24 PM EDT Note Date & Type Note Facility 09-04-2023 History of Presen t illness Narrative Images from the original note were not included. Subjective She came in with complaints of red painful area on right upper eyelid. Patient gets a history of styes. Patient says it is a stye. Patient denies any vision changes pain. The history is provided by the patient. No screening technician was used. Eye Problem Review of Systems Constitutional: Negative. Skin: Negative. Objective Physical Exam Constitutional: Appearance: Normal appearance. Eyes: Comments: Erythema and firm raised area noted in the area marked above. Pulmonary: Effort: Pulmonary effort is normal. Neurological: Mental Status: He is alert. PAST MEDICAL HISTORY Diagnosis Date Diplopia 09/23/2007 Was felt to be secondary to a blood flow issue with tilting head to right. Has been on baby ASA an no issue since. Family history of coronary artery disease 07/02/2012 Mixed hyperlipidemia 12/23/2014 Obesity, Class III, BMI 40-49.9 (morbid obesity) ([facility]) 03/20/2018 PAST SURGICAL HISTORY Procedure Laterality Date PAST SURGICAL HISTORY OF Left knee surgery, scare tissue remove ALLERGIES Pravastatin MEDICATIONS simvastatin (ZOCOR) 10 mg tablet Take 1 tablet by mouth daily at bedtime. For cholesterol. Aspirin 81 mg Tab Take 1 tablet by mouth once daily. Take with food. trimethoprim-polymyxin (POLYTRIM) 10,000 unit- 1 mg/mL ophthalmic solution Use 1 Drop in the right eye every 4 hours for 7 days. doxycycline monohydrate 100 mg tablet Take 1 tablet by mouth two times a day for 5 days. FAMILY HISTORY Problem Relation Age of Onset Diabetes Father Seizures Father possible epileptic Lipids Father Heart Mother leaking artery, bypass surgery (late 50's) Hypertension Mother Stroke Mother multiple, Rt upper ext weakness Coronary Artery Disease Mother 56 Coronary Artery Disease Brother Fatal [place] age 48 Stroke Sister 58 Social History Tobacco Use Smoking status: Never Smokeless tobacco: Never Vaping Use Vaping Use: Never used Substance Use Topics Alcohol use: Yes Comment: rarely Drug use: No ASSESSMENT/PLAN: 1. Hordeolum externum of right upper eyelid - ICD9: 373.11, ICD10: H00.011 (primary diagnosis) - POLYMYXIN B SULFATE 10,000 UNIT-TRIMETHOPRIM 1 MG/ML EYE DROPS - DOXYCYCLINE MONOHYDRATE 100 MG TABLET 2. Skin infection - ICD9: 686.9, ICD10: L08.9 - DOXYCYCLINE MONOHYDRATE 100 MG TABLET Was educated about proper use of medication supportive therapies and red flag symptoms to watch for. Patient will follow-up if signs and symptoms seem to getting worse not better. Patient was okay with care plan. Clare Howell APRN.CNP documented in this encounter [facility] Evaluation note Note Date & Type Note Facility Evaluation note Diagnosis Hordeolum externum of right upper eyelid- Primary Hordeolum externum Skin infection Unspecified local infection of skin and subcutaneous tissue documented in this encounter [facility] Evaluation note Note Date & Type Note Facility Evaluation note Diagnosis Sore throat- Primary Acute pharyngitis URI, acute Acute upper respiratory infections of unspecified site documented in this encounter [facility] Summary Purpose Family History No Family History Records Found Advance Directives No Advanced Directives Records Found Additional Source Comments Source Comments (unrecognize d section and content) In the event this informatio n is protected by the Federal Confidentiality of Alcohol and Drug Abuse Patient Records regulations: The Federal rules restrict any use of the information to criminally investigate or prosecute any alcohol or drug abuse patient[facility] event this information is protected by the Federal Confidentiality of Alcohol and Drug Abuse Patient Records regulations: The Federal rules restrict any use of the information to criminally investigate or prosecute any alcohol or drug abuse patient.[facility] the event this information is protected by the Federal Confidentiality of Alcohol and Drug Abuse Patient Records regulations: The Federal rules restrict any use of the information to criminally investigate or prosecute any alcohol or drug abuse patient.[facility] Reason for Visit (unrecogniz ed section and content) Reason Comments Eye Problem Right eye. X3 and ge tting worse. Reason Comments Fever Fever, MARY, sinus and congestion x 3 days Care Teams (unrecognized sec tion and content) Business Strategy Manager Relationship Specialty Start Date End Date Jordy Ritchie MD [address] [place] [address] PCP - General Family Medicine 12/23/14 Business Strategy Manager Relationship Specialty Start Date End Date Jordy Ritchie MD [address] [place], [place] [id number] PCP - [facility] 12/23/14 Vani Jones APRN.CHEF SAUCIER [address] [place], [place] [id number] [facility] 10/17/24 Gabriela Hutchins PA-C [address] [place], [place] [id number] [facility] 10/17/24 Business Strategy Manager Relationship Specialty Start Date End Date Jordy Ritchie MD [address] [place], [place] [id number] PCP - [facility] 12/23/14 01/26/25 Vani Jones, KHALIF.CHEF SAUCIER [address] [place] [id number] [facility] 10/17/24 Gabriela Hutchins PA-C [address] [place], [place] [id number] [facility] 10/17/24 (unrecognized sect ion and content) No Status Records Found INFORMATION SOURCE (unrecogn ized section and content) DATE CREATED AUTHOR 01/28/2025 [facility] FOR RECORDS PERTAINING TO PATIENTS WHO ARE OR HAVE BEEN ENROLLED IN A CHEMICAL DEPENDENCY/SUBSTANCEABUSE PROGRAM, SOME INFORMATION MAY BE OMITTED. This clinical summary was aggregated from multiple sources. Caution should be exercised in using it in the provision of clinical care. This summary normalizes information from multiple sources, and as a consequence, information in this document may materially change the coding, format and clinical context of patient data. In addition, data may be omitted in some cases. CLINICAL DECISIONS SHOULD BE BASED ON THE PRIMARY CLINICAL RECORDS. [facility] provides no warranty or guarantee of the accuracy or completeness of information in this document.
--- NOTE | 2025-05-23 13:10 | CM.ED ---
Social Work Date of referral: 05/23/25 Reason for referral: No Advanced Care Directives (ACD's) on file Referred by: Social Work Identification Patient provided consent to Social Work visit. Ethnoarchaeologist requested a copy of ACD's which patient agreed to bring in. Madie Chiang, CREW MESS ATTENDANT, FASHION JOURNALIST
[2025-05-23 13:38] LABS: Anion Gap 11 (5-15); BUN 13 mg/dL (4-19); BUN/Creat Ratio 10.3 RATIO (10-20); Calcium,Total 9.0 mg/dL (7.6-11.0); Carbon Dioxide 22.4 mmol/L (21.0-32.0); Chloride 102 mmol/L (98-108); Estimated Creatinine Clearance 89.11 ml/min (50-250); Glucose 150 mg/dL (70-99); Potassium 4.4 mmol/L (3.3-5.1); Troponin T High Sensitivity 49 ng/L (<=22)
[2025-05-23 14:43] LABS: Troponin T High Sens 2 HR 71 ng/L (<=22)
--- NOTE | 2025-05-23 15:11 | PCM.HP.STD ---
HPI - General General Date of Admission: 05/23/25 Date of Service: 05/23/25 Chief Complaint: Chest pain. HPI Narrative The patient is a 54 y/o M w/ PMHx: Morbid obesity, HLD who presents to the [facility] ED on 05/23/2025 with history of onset of chest discomfort starting the day prior noted to be continuous and dull in the substernal region relieved with positional changes of his arms with no associated nausea, emesis, diaphoresis or dyspnea originally starting during dinner the day prior and given ongoing persistent discomfort prompted eventual ED evaluation to be cautious. In the ED patient notes that chest discomfort currently is primarily focused in the left substernal region however previously he did note it would occasionally radiate directly toward his back as well. He notes previous to any ED interventions his pain was 8-9 out of 10 in severity, currently down to 3-4 out of 10 in severity following morphine and nitroglycerin. Workup in the ED included T98.2, heart rate 111, BP 184/104, respiratory rate 18, 97% on room air with most recent repeat vitals heart rate 69, BP 138/83, respiratory rate 13, 98% room air, CBC with WBC 5.4, hemoglobin 15.5, platelet 167 with lymphopenia, D-dimer 0.39, BMP with BUN/creatinine 13/1.26, GFR 67, glucose 150, troponin initial 49 with repeat delta 71, chest x-ray with no acute cardiopulmonary findings, EKG with sinus tachycardia with ST depression in leads II, aVF, V3 through V6 with no prior EKGs for comparison. In the ED patient administered full-strength aspirin therapy, morphine 4 mg IV x 1, sublingual nitroglycerin in addition to heparin drip. ED physician noted intention to discuss case with Cardiology given NSTEMI presentation. [facility] Medical History CKD (chronic kidney disease), stage II Morbid obesity Hypercholesterolemia Home Medications ?Medication ?Instructions ?Recorded ?Last Taken ?Type NK 05/23/25 Unknown History Allergy/AdvReac Type Severity Reaction Status Date / Time No Known Allergies Allergy Verified 05/23/25 11:52 Family History (Updated 05/23/25 @ 15:[address] Odessa Sanchez MD) Mother Heart disease Hypertension Diabetes CVA (cerebral vascular accident) Father Heart disease Hypertension Diabetes Surgical History (Updated 05/23/25 @ 15:[address] Odessa Sanchez MD) Status post wisdom tooth extraction Hx of knee surgery Social History (Updated 05/23/25 @ 15:[address] Odessa Sanchez MD) household members: spouse Smoking Status: Never smoker alcohol intake: current alcohol intake frequency: holidays/special occasions only Alcohol type: beer substance use type: does not use ROS ROS Narrative Admission Review of Systems: CONSTITUTIONAL: No weight loss, fever, chills, + weakness or fatigue. HEENT: Eyes: No visual loss, blurred vision, double vision or yellow sclerae. Ears, Nose, Throat: No hearing loss, sneezing, congestion, runny nose or sore throat. SKIN: No rash or itching, lesions, wounds. CARDIOVASCULAR:+ Chest pain. No palpitations, edema, orthopnea, syncopal events. RESPIRATORY: No shortness of breath, cough or sputum, wheezing, hemoptysis. GASTROINTESTINAL: No anorexia, nausea, vomiting or diarrhea, abdominal pain, melena, BRBPR. GENITOURINARY: No dysuria, frequency, urgency or retention. NEUROLOGICAL: No headache, dizziness, syncope, paralysis, ataxia, numbness or tingling in the extremities, focal weakness, change in bowel or bladder control, seizure. MUSCULOSKELETAL: + muscle, back pain, joint pain or stiffness. HEMATOLOGIC: No anemia, bleeding or bruising. LYMPHATICS: No enlarged nodes. No history of splenectomy. PSYCHIATRIC: No history of depression or anxiety. ENDOCRINOLOGIC: No reports of sweating, cold or heat intolerance. No polyuria or polydipsia. ALLERGIES: No history of asthma, hives, eczema or rhinitis. Vital Signs Vital Signs Vital Signs: 05/23/25 11:51 05/23/25 12:22 05/23/25 12:27 Temperature 98.2 F Temperature Source Oral Pulse Rate 111 H 85 Respiratory Rate 18 Respiratory Effort Respiratory Pattern Blood Pressure 184/104 H 187/99 H Blood Pressure Mean 130 Pulse Ox 97 Oxygen Delivery Method Room Air Room Air 05/23/25 12:27 05/23/25 12:50 05/23/25 12:50 Temperature Temperature Source Pulse Rate 84 86 Respiratory Rate 20 H Respiratory Effort Normal Respiratory Pattern Normal Blood Pressure 142/81 H 142/81 H Blood Pressure Mean 101 Pulse Ox 98 Oxygen Delivery Method Room Air 05/23/25 13:14 05/23/25 13:15 05/23/25 13:18 Temperature Temperature Source Pulse Rate 91 83 89 Respiratory Rate 24 H 16 Respiratory Effort Respiratory Pattern Blood Pressure 143/85 H 143/85 H Blood Pressure Mean 103 Pulse Ox 98 97 Oxygen Delivery Method Room Air 05/23/25 13:30 05/23/25 13:45 05/23/25 14:00 Temperature Temperature Source Pulse Rate 78 66 69 Respiratory Rate 13 12 13 Respiratory Effort Respiratory Pattern Blood Pressure 145/85 H 138/83 H Blood Pressure Mean 103 99 Pulse Ox 96 98 98 Oxygen Delivery Method Room Air Room Air 05/23/25 15:00 Temperature Temperature Source Pulse Rate 86 Respiratory Rate 12 Respiratory Effort Respiratory Pattern Blood Pressure 158/96 H Blood Pressure Mean 116 Pulse Ox 99 Oxygen Delivery Method Room Air Weight Weight: 304 lb 4 oz Body Mass Index (BMI) 46.2 Physical Exam Narrative Physical Examination: General: Awake, alert, oriented x 3 and cooperative, seated upright in the ED, notes chest discomfort is improved but still 3-4 maximum out of 10 in severity. Skin: Normal color, normal turgor, no icterus, no cyanosis except occasional stage ecchymoses, abrasion. HEENT: AT/NC, EOMI, PERRLA, MMM, no carotid bruits, difficult to discern JVD given thickened neck. Lungs: CTA bilaterally, moderate effort, mild decrease BL bases, no rales, ronchi or wheezing. Heart: Regular rate and rhythm; no gallop, rub audible. Abdomen: Soft, morbidly obese, NTTP, distant BS, difficult to discern distention and HSM given habitus. Extremities: No cyanosis, no clubbing, pedal to mid underwood chronic edema not markedly pitting. Neurological: Patient awake, alert, oriented as noted, cognitive function intact; pupils equally reactive to light and accommodation, cranial nerves grossly normal, moving all 4 extremities, no focal deficits, strength mildly to moderately globally decreased secondary to acute presentation complaints. Psychiatric: Affect appears normal, no acute evidence of depressive or anxiety feelings. Results Lab / Micro Data 05/23/25 12:15 05/23/25 12:15 Labs: Laboratory Results - last 24 hr 05/23/25 12:15: WBC 5.4, RBC 5.46, Hgb 15.5, Hct 45.5, MCV 83.3, MCH 28.4, MCHC 34.1, RDW Std Deviation 38.2, RDW Coeff of Basil 12.7, Plt Count 167, MPV 10.0, Immature Gran % (Auto) 0.400, Neut % (Auto) 74.3 H, Lymph % (Auto) 14.6 L, [place] % (Auto) 7.6, Eos % (Auto) 2.4, Baso % (Auto) 0.7, Absolute Neuts (auto) 4.0, Absolute Lymphs (auto) 0.79 L, Nucleated RBC % 0, D-Dimer Quant (PE/DVT) 0.39, Sodium 135, Potassium 4.4, Chloride 102, Carbon Dioxide 22.4, Anion Gap 11, BUN 13, Creatinine 1.26 H, Estim Creat Clear Calc 89.11, Est GFR (MDRD) Non-Af 67, BUN/Creatinine Ratio 10.3, Glucose 150 H, Calcium 9.0, Troponin T High Sens 49 H 05/23/25 14:07: Troponin T Hi Sens 2 Hr 71 H* Imaging Radiology Impression Chest X-Ray 05/23/25 12:20 IMPRESSION: Negative Chest. Reading Location: [id number] Assessment & Plan Assessment/Plan (1) Chest pain: PLAN: Plan The patient is a 54 y/o M w/ PMHx: Morbid obesity, HLD who presents to the [facility] ED on 05/23/2025 with history of onset of chest discomfort starting the day prior noted to be continuous and dull in the substernal region relieved with positional changes of his arms with no associated nausea, emesis, diaphoresis or dyspnea originally starting during dinner the day prior and given ongoing persistent discomfort prompted eventual ED evaluation. #1. Chest Pain with elevated cardiac enzyme ruling in for NSTEMI with EKG ST depressions however no comparison: EKG with sinus tachycardia with ST depression in leads II, aVF, V3 through V6 with no prior EKGs for comparison, CXR without acute cardiopulmonary findings, initial trop 49 with repeat delta 71. Will admit to PCU, place on a monitored bed with serial cardiac enzymes and EKGs. Given significant EKG findings and troponin rising we will request cardiology consultation. Will maintain on heparin drip. Will continue aspirin therapy. Magnesium level requested. FLP in AM. ECHO requested. Will judiciously hydrate especially given #5 and unclear renal baseline. NPO at midnight. ASA, NG, morphine. #2. Elevated BP without hypertensive diagnosis: Patient with elevated BP in the ED upon arrival, BP did improve however patient was administered morphine and sublingual nitroglycerin, will add BB therapy given #1, add further pending response or cardiology discretion, as needed IV hydralazine in the interim. #3. Hyperglycemia without diabetic history: Presentation glucose 150, will obtain hemoglobin A1c and if consistent with diabetes will initiate ADA diet with Accu-Cheks with insulin sliding scale as well as nutrition consultation. #4. Hyperlipidemia: Per regimen not on any statin therapy, adding high dose given #1, FLP requested #5. Possible Chronic Kidney Disease Stage II per current GFR trending but no comparison thus uncertain: Admission BUN/Cr 13/.26, GFR 67, baseline renal function unknown, repeat BMP in AM to further elucidate chronicity. #6. Morbid Obesity: Weight loss and lifestyle changes encouraged. #7. Possible underlying LANE: From discussion with patient and spouse concern for possible LANE, will place on trending pulse ox. #8. DVT prophylaxis: Heparin drip. #9. CODE status: Full Code. Patient who is present is his healthcare power of attorney recruiter and living will is in place. Charges/Coding Visit Charges Inpatient E&M: 84634 Init Hosp L3
--- NOTE | 2025-05-23 15:21 | EKG12_ITS ---
Test Reason : CP Blood Pressure : */* mmHG Vent. Rate : 77 BPM Atrial Rate : 77 BPM P-R Int : 160 ms QRS Dur : 86 ms QT Int : 374 ms P-R-T Axes : 15 -20 -1 degrees QTcB Int : 423 ms Normal sinus rhythm Nonspecific ST abnormality Abnormal ECG Confirmed by Alejandro Fermin ([id number]), editor & co founder REYES PATE ([id number]) on 05/24/2025 1:03:37 PM Referred By: Confirmed By: Alejandro Fermin
--- OUTSIDE RECORDS SUMMARY | 2025-05-23 15:38 | XMS RPT_ITS | CCD ---
Author Organization [facility] Inform ion Partnership [facility] Care Team Providers Care Distribution Tech Name Role Phone Jordy Ritchie MD Primary Care Provider Jordy Ritchie MD Primary Care Provider [phone] Robert CUADRA.PAINT AND TABLE EDGER, Vani Unavailable Gabriela Hutchins PA-C Unavailable JORDY RITCHIE Primary Care Unavailable Jordy Ritchie MD Primary Care Provider Allergies Allergy Classification Reported Allergen(s) Allergy Type Date of Onset Reaction(s) Facility (4 sources) Pravastatin; Translations: [PRAVASTATIN] Drug Allergy 02-09-2013 Intolerance [facility] Work Phone: Medications Current Medications Medication [...] a day for 5 days. polymyxin b 96727 unt/ml / trimethoprim 1 mg/ml ophthalmic solution [...] 01-26-2025 CNOV Office Visit (UCWSTR ) ROBBIN,DEDRA Pola ([id number]) 1970 M Date Time Provider Department 01/26/25 11:00 AM CLARE HOWELL RUST During your visit today, we recorded the [...] history is provided by the patient. No wealth management director was used. Fever Associated symptoms include sore [...] Obesity, Class III, BMI 40-49.9 (morbid obesity) ([facility]) 03/20/2018 PAST SURGICAL HISTORY Procedure Laterality Date [...] Mother 56 Coronary Artery Disease Brother Fatal CO age 48 Stroke Sister 58 Social History [...] A/B AND RSV PCR, ROUTINE Clare Howell APRN.PAINT AND TABLE EDGER MDM Procedures Allergies As of Date: 01/26/2025 [...] AND RSV PCR, ROUTINE [[id number]] Order #: [id number]. #:[id number] STREP A MOLECULAR (POC) [[id number]] Order #: [id number]. #:[id number] Prescriptions as of 01/26/2025 - simvastatin (ZOCOR) [...] obesity*03/20/2018 En (more content not included)... Normal [facility] STREP A MOLECULAR (POC)on Procedural Control Valid [facility] Strep A (POCT) Negative Negative [facility] Clin ic Vital Signs Date Time Vital Sign Value Performing Clinician Faci lity 01-26-2025 11:05-0400 Body mass index (BMI) [Ratio] 45.32 kg/m2 Clare Howell APRN.CNP Work Phone: [facility] 01-26-2025 11:05-0400 Body temperature 99.1 [degF] Clare Howell APRN.PAINT AND TABLE EDGER Work Phone: [facility] 01-26-2025 11:05-0400 Body weight 137.2 kg Clare Howell APRN.PAINT AND TABLE EDGER Work Phone: [facility] 01-26-2025 11:05-0400 Diastolic blood pressure 78 mm[Hg] Clare Howell APRN.PAINT AND TABLE EDGER Work Phone: [facility] 01-26-2025 11:05-0400 Heart rate 98 /min Clare Howell APRN.PAINT AND TABLE EDGER Work Phone: [facility] 01-26-2025 11:05-0400 Respiratory rate 16 /min Clare Howell APRN.PAINT AND TABLE EDGER Work Phone: [facility] 01-26-2025 11:05-0400 SaO2% (BldA) [Mass fraction] 96 % Clare Howell APRN.PAINT AND TABLE EDGER Work Phone: [facility] 01-26-2025 11:05-0400 Systolic blood pressure 130 mm[Hg] Clare Howell APRN.PAINT AND TABLE EDGER Work Phone: [facility] 09-04-2023 12:15-0400 Body temperature 98.1 [degF] Clare Howell APRN.PAINT AND TABLE EDGER Work Phone: [facility] 09-04-2023 12:15-0400 Body weight 135.04 kg Clare Howell APRN.PAINT AND TABLE EDGER Work Phone: [facility] 09-04-2023 12:15-0400 Diastolic blood pressure 70 mm[Hg] Clare Howell APRN.PAINT AND TABLE EDGER Work Phone: [facility] 09-04-2023 12:15-0400 Heart rate 68 /min Clare Howell APRN.PAINT AND TABLE EDGER Work Phone: [facility] 09-04-2023 12:15-0400 Respiratory rate 16 /min Clare Howell APRN.PAINT AND TABLE EDGER Work Phone: [facility] 09-04-2023 12:15-0400 SaO2% (BldA) [Mass fraction] 98 % Clare Howell APRN.PAINT AND TABLE EDGER Work Phone: [facility] 09-04-2023 12:15-0400 Systolic blood pressure 122 mm[Hg] Clare Howell APRN.PAINT AND TABLE EDGER Work Phone: [facility] Encounters Encounter Date Encounter Type Care Provider Facility Start: 01-26-2025 End: 03-28-2025 Follow-up encounter Clare Howell APRN.PAINT AND TABLE EDGER Work Phone: [facility] Start: 01-26-2025 End: 01-26-2025 ambulatory JORDY RITCHIE Facility:[facility] Start: 01-26-2025 End: 01-26-2025 Patient encounter procedure Clare Howell APRN.PAINT AND TABLE EDGER Work Phone: [facility] Comment on above: Sore throat (Primary Dx); URI, acute Start: 09-04-2023 End: 09-04-2023 Patient encounter procedure Clare Howell APRN.PAINT AND TABLE EDGER Work Phone: [facility] Comment on above: Hordeolum externum o f right upper eyelid (Primary Dx); Skin infection Start: 10-22-2019 Patient encounter status Clare Howell APRN.PAINT AND TABLE EDGER Work Phone: [facility] Work Phone: Procedures Date Procedure Procedure Detail Performing Clinician Start: 01-26-2025 STREP A MOLECULAR (POC) Clare Howell APRN.PAINT AND TABLE EDGER Work Phone: Start: 10-20-2021 Lipid 1996 panel - S lavinia or Plasma Clare Howell APRN.PAINT AND TABLE EDGER Work Phone: Plan of Treatment Date Care Activity Detail Author Start: 10-20-2026 Lipid 1996 panel - Serum or Plasma Lipid Screening [facility] Start: 10-20-2026 Lipid panel Lipid Screening [facility] Start: 07-12-2025 Influenza vaccination Influenza Vaccine (Season Ended) [facility] Start: 04-21-2025 Urine microalbumin profile DTaP,Tdap,Td Vaccine (2 - Td or Tdap) [facility] Start: 10-23-2024 Prostate Cancer Screening Discussion Prostate Cancer Screening Discussion [facility] Start: 10-23-2024 Prostate specific antigen measurement Prostate Cancer Screening Discussion [facility] Start: 10-20-2024 Diabetes Screening Diabetes Screening [facility] Start: 07-12-2024 Covid-19 Vaccine () Covid-19 Vaccine () [facility] Start: 07-12-2024 Influenza vaccination Influenza Vaccine (#1) [facility] Start: 07-12-2023 Covid-19 Vaccine () Covid-19 Vaccine () [facility] Start: 07-12-2023 Influenza vaccination Influenza Vaccine (#1) [facility] Start: 11-11-2022 Depression Assessment Depression Assessment [facility] Start: 2018 Pneumococcal Vaccine: 50+ (1 of 1 - PCV) Pneumococcal Vaccine: 50+ (1 of 1 - PCV) [facility] Start: 2018 Shingrix Vaccine (1 of 2) Shingrix Vaccine (1 of 2) [facility] Start: 2013 Cologuard (FIT-DNA) Cologuard (FIT-DNA) [facility] Start: 2013 Colonoscopy Colonoscopy [facility] Start: 2013 Colorectal Cancer Screening Colorectal Cancer Screening [facility] Start: [address] Colonography [facility] Start: 2013 Fecal Occult Blood Fecal Occult Blood [facility] Start: 2013 Screening for malignant neoplasm of colon [facility] Start: 2013 Sigmoidoscopy Sigmoidoscopy [facility] Start: 1987 Hepatitis B Vaccine (1 of 3 - 19+ 3-dose series) Hepatitis B Vaccine (1 of 3 - 19+ 3-dose series) [facility] Start: 1986 Anxiety Screening Anxiety Screening [facility] Start: 1986 Depression Screening Depression Screening [facility] Start: 1986 HIV Screening HIV Screening [facility] Start: 1986 HIV screening HIV Screening [facility] Start: 1968 Hepatitis B Vaccine (1 of 3 - 3-dose series) Hepatitis B Vaccine (1 of 3 - 3-dose series) [facility] COVID & INFLUENZA A/ B & RSV PCR, ROUTINE COVID & INFLUENZA A/B & RSV PCR, ROUTINE Microbiology Routine URI, acute 01/26/2025 11:23 AM EDT [facility] Work Phone: Immunizations Immunization Date Immunization Notes Care Provider Dennis kayaadalberto 10-24-2016 influenza virus vaccine, unspecified formulation Clare Howell APRN.PAINT AND TABLE EDGER Work Phone: [facility] 04-21-2015 tetanus toxoid, redu claudio diphtheria toxoid, and acellular pertussis vaccine, adsorbed Clare Howell APRN.PAINT AND TABLE EDGER Work Phone: [facility] Work Phone: 11-11-2002 tetanus and diphther ia toxoids, adsorbed, preservative free, for adult use (2 Lf of tetanus toxoid and 2 Lf of diphtheria toxoid) Clare Howell APRN.PAINT AND TABLE EDGER Work Phone: [facility] Work Phone: Payers Date Payer Category Payer [facility] PPO [id number] 2022 Unknown [id number] Social History Date Type Detail Facility Start: 09-04-2023 Tobacco smoking stat us GAIS Never smoked tobacco [facility] Start: 09-04-2023 Tobacco use and exposure Smoke less tobacco non-user [facility] Start: 09-04-2023 End: 01-26-2025 Alcohol intake Current drinker of alcohol (finding) [facility] Start: 10-16-2020 End: 10-19-2021 History of Social function [facility] Start: 10-16-2020 End: 10-19-2021 Social connection and isolation panel [facility] In a typical week, h ow many times do you talk on the telephone with family, friends, or neighbors? Patient refused [facility] Are you now , , , , never or living with a partner? Refused [facility] How often to you hav e a drink containing alcohol? Never [facility] Do you feel stress - tense, restless, nervous, or anxious, or unable to sleep at night because your mind is troubled all the time - these days [OSQ] To some extent [facility] (I/We) worried wheth er (my/our) food would run out before (I/we) got money to buy more. Never true [facility] In the past 12 month s, was there a time when you were not able to pay the mortgage or rent on time? No [facility] Start: 10-16-2019 Education 16 [facility] Start: 1970 Sex Assigned At Not on file C [facility] Functional Status Date Assessment Result Facility 04-21-2015 Are you deaf, or do you have serious difficulty hearing No 04/21/2015 8:23 AM EDT Lorena Lagunas LPN No [facility] 04-21-2015 Are you blind, or do you have serious difficulty seeing, even when wearing glasses No 04/21/2015 8:23 AM EDT Lorena Lagunas LPN No [facility] 04-21-2015 Do you have serious difficulty walking or climbing stairs No 04/21/2015 8:23 AM EDT Lorena Lagunas LPN No [facility] 04-21-2015 Do you have difficul ty dressing or bathing No 04/21/2015 8:23 AM EDT Lorena Lagunas LPN No [facility] 04-21-2015 Because of a physica l, mental, or emotional condition, do you have difficulty doing errands alone such as visiting a physician's office or shopping No 04/21/2015 8:23 AM EDT Lorena Lagunas LPN No [facility] Mental Status Date Assessment Result Facility 04-21-2015 Because of a physica l, mental, or emotional condition, do you have serious difficulty concentrating, remembering, or making decisions No 04/21/2015 8:23 AM EDT Lorena Lagunas BRENDON No [facility] Clinical Note 01-26-2025 Note Date & Type Note Facility 01-26-2025 Note SARS-COV-2 (AGENT OF COVID-19) RNA: Not detected INFLUENZA A RNA: Not detected INFLUENZA B RNA: Not detected RESPIRATORY SYNCYTIAL VIRUS (RSV) RNA: Not detected [facility] Comment on above: Performed By: #### 9 [id number] #### [facility] CLIA [id number] [address] [place] [address] [place] Progress note 01-26-2025 Note Date & Type Note Facility 01-26-2025 Note HNO ID: [id number] Author: CLARE HOWELL APRN.PAINT AND TABLE EDGER Service: ? Author Type: Nurse Practitioner Type: [...] history is provided by the patient. No wealth management director was used. Fever Associated symptoms include sore [...] Mother 56 Coronary Artery Disease Brother Fatal CO age 48 Stroke Sister 58 Social History [...] AND INFLUENZA A/B AND RSV PCR, ROUTINE Claer Howell APRN.ELIZABETH MDM Procedures [facility] History of Present illness Narrative 01-26-2025 [...] history is provided by the patient. No wealth management director was used. Fever Associated symptoms include sore [...] Obesity, Class III, BMI 40-49.9 (morbid obesity) ([facility]) 03/20/2018 PAST SURGICAL HISTORY Procedure Laterality Date [...] Mother 56 Coronary Artery Disease Brother Fatal CO age 48 Stroke Sister 58 Social History [...] APRN.ELIZABETH MDM Procedures documented in this encounter [facility] History of Present illness Narrative 09-04-2023 [...] history is provided by the patient. No wealth management director was used. Eye Problem Review of Systems [...] Obesity, Class III, BMI 40-49.9 (morbid obesity) ([facility]) 03/20/2018 PAST SURGICAL HISTORY Procedure Laterality Date [...] Mother 56 Coronary Artery Disease Brother Fatal CO age 48 Stroke Sister 58 Social History [...] Clare Howell APRN.CNP documented in this encounter [facility] Evaluation note Note Date & Type Note Facility Evaluation note Diagnosis Hordeolum externum of right upper eyelid- Primary Hordeolum externum Skin infection Unspecified local infection of skin and subcutaneous tissue documented in this encounter [facility] Evaluation note Note Date & Type Note Facility Evaluation note Diagnosis Sore throat- Primary Acute pharyngitis URI, acute Acute upper respiratory infections of unspecified site documented in this encounter [facility] Summary Purpose Family History No Family [...] or prosecute any alcohol or drug abuse patient.[facility] the event this information is protected by the Federal Confidentiality of Alcohol and Drug Abuse Patient Records regulations: The Federal rules restrict any use of the information to criminally investigate or prosecute any alcohol or drug abuse patient.[facility] the event this information is protected by the Federal Confidentiality of Alcohol and Drug Abuse Patient Records regulations: The Federal rules restrict any use of the information to criminally investigate or prosecute any alcohol or drug abuse patient.[facility] Reason for Visit (unrecogniz ed section and content) Reason Comments Eye Problem Right eye. X3 and ge tting worse. Reason Comments Fever Fever, MARY, sinus and congestion x 3 days Care Teams (unrecognized sec tion and content) Distribution Tech Relationship Specialty Start Date End Date Jordy Ritchie MD [address] [place] [address] PCP - General Family Medicine 12/23/14 Distribution Tech Relationship Specialty Start Date End Date Jordy Ritchie MD [address] [place], [place] [id number] PCP - [facility] 12/23/14 Vani Jones APRN.PAINT AND TABLE EDGER [address] [place], [place] [address] [facility] 10/17/24 Gabriela Hutchins PA-C [address] [place], [place] [id number] [facility] 10/17/24 Distribution Tech Relationship Specialty Start Date End Date Jordy Ritchie MD [address] [place], [place] [id number] PCP - [facility] 12/23/14 01/26/25 Vani Jones, KHALIF.PAINT AND TABLE EDGER [address] [place] [id number] [facility] 10/17/24 Gabriela Hutchins PA-C [address] [place], [place] [id number] [facility] 10/17/24 (unrecognized sect ion and content) No Status Records Found INFORMATION SOURCE (unrecogn ized section and content) DATE CREATED AUTHOR 01/28/2025 [facility] FOR RECORDS PERTAINING TO PATIENTS WHO [...] BE BASED ON THE PRIMARY CLINICAL RECORDS. [facility]. provides no warranty or guarantee of the accuracy or completeness of information in this document.
[2025-05-23] MEDS: HEPARIN/D5w 25,000 UNITS 25,000 UNITS/250 ML IV.SOLN. 10 UNITS CONT INF ×2 (15:39→17:20)
[2025-05-23] MEDS: Heparin Injection (Vial) 5,000 UNIT/ML VIAL 4000 UNIT IV (15:40)
[2025-05-23 15:47] LABS: Magnesium 2.1 mg/dL (1.5-2.2)
[2025-05-23 16:00] LABS: Prothrombin Time (Protime)PT. 13.5 SECONDS (11.7-14.9)
[2025-05-23 16:01] LABS: Partial Thromboplast Time 26.2 Seconds (24.1-36.2)
[2025-05-23 17:07] LABS: Troponin T High Sens 4 HR 145 ng/L (<=22)
[2025-05-23 23:58] LABS: Partial Thromboplast Time 46.6 Seconds (24.1-36.2)
[2025-05-24] VITALS (12 sets, daily range): BP systolic 114–140; BP diastolic 75–90; PULSE 72–86; RESP 16–18; TEMP 36.5–36.8; O2SAT 96–99; BMI 46.3
[2025-05-24] MEDS: 0.9% Normal Saline (1000mL) 1,000 ML 100 ML IV
--- NOTE | 2025-05-24 05:55 | ECHOCS_ITS ---
Reason For Study Reason For Study: NSTEMI Procedure This was a 2D Doppler, Color Flow transthoracic echocardiogram. The study was technically difficult. Contrast injection was performed. Exam performed portable in patient room. Left Ventricle Normal LV size. Mild concentric left ventricular hypertrophy. The LV ejection fraction is 65 %. Stage 1 diastolic dysfunction. Right Ventricle Normal right ventricle. Atria The left and right atria are normal. Mitral Valve Trivial mitral valve insufficiency. Tricuspid Valve Normal tricuspid valve. Unable to estimate RV systolic pressure due to inadequate jet, pulmonary artery pressure probably normal. Aortic Valve Trisinus/trileaflet aortic valve. Pulmonic Valve The pulmonic valve is not well visualized. Great Vessels Normal sized aortic root. Pericardium/Pleural No pericardial effusion. Medication Diluted definity 3ml given slow IV push to enhance endocardial definition. MMode/2D Measurements & Calculations LVIDd: 5.0 cm IVSd: 0.91 cm Ao root diam: 3.3 cm LVIDs: 3.7 cm LVPWd: 1.2 cm FS: 26.8 % LAV(MOD-bp): 32.0 ml LVAd ap4: 28.3 cm2 SV(MOD-sp4): 50.5 ml LAV(MOD-bp) Indexed: 13.1 ml/m2 LVLd ap4: 7.8 cm SI(MOD-sp4): 20.7 ml/m2 LAV(MOD-sp2): 24.5 ml EDV(MOD-sp4): 82.5 ml LAV(MOD-sp4): 39.9 ml EDV(sp4-el): 87.5 ml LVAs ap4: 15.6 cm2 LVLs ap4: 6.1 cm ESV(MOD-sp4): 32.0 ml ESV(sp4-el): 33.8 ml EF(MOD-sp4): 61.2 % EF(sp4-el): 61.3 % SV(sp4-el): 53.7 ml LA A4 area: 15.7 cm2 LA dimension(2D): 3.4 cm RA A4 area: 13.6 cm2 Time Measurements MV dec time: 0.22 sec Doppler Measurements & Calculations MV E max juancarlos: 64.4 cm/sec Lat Peak E' Juancarlos: 10.5 cm/sec Med Peak E' Juancarlos: 11.1 cm/sec MV A max juancarlos: 86.3 cm/sec E/E' lat: 6.1 E/E' med: 5.8 MV E/A: 0.75 MV V2 max: 92.2 cm/sec MV P1/2t max juancarlos: 89.3 cm/sec Ao V2 max: 103.5 cm/sec MV max P.4 mmHg MV P1/2t: 82.8 msec Ao max P.3 mmHg MV V2 mean: 54.1 cm/sec MV dec slope: 316.0 cm/sec2 Ao V2 mean: 67.4 cm/sec MV mean P.4 mmHg MVA(P1/2t): 2.7 cm2 Ao mean P.1 mmHg MV V2 VTI: 25.4 cm Ao V2 VTI: 20.1 cm AV (velocity ratio): 0.72 LV V1 max: 74.6 cm/sec LV V1 max P.2 mmHg LV V1 mean P.3 mmHg LV V1 mean: 52.7 cm/sec LV V1 VTI: 14.4 cm ECHO/Echo Complete W/ Contrast Interpretation Summary The study was technically difficult. Mild concentric left ventricular hypertrophy. The LV ejection fraction is 65 %. Stage 1 diastolic dysfunction. Ordering Physician: Odessa Sanchez Performed By: Arsh Thomas RCS
[2025-05-24 06:16] LABS: Partial Thromboplast Time 61.5 Seconds (24.1-36.2)
[2025-05-24 06:43] LABS: AST(SGOT) 121 U/L (<=37); Alanine Aminotransfer ALT/SGPT 38 U/L (<=46); Albumin, Serum 4.0 g/dL (3.5-5.0); Alkaline Phosphatase 79 U/L (40-129); Anion Gap 10 (5-15); BUN 13 mg/dL (4-19); BUN/Creat Ratio 13.0 RATIO (10-20); Calcium,Total 9.0 mg/dL (7.6-11.0); Carbon Dioxide 24.5 mmol/L (21.0-32.0); Chloride 104 mmol/L (98-108); Cholesterol 203 mg/dL (<=200); Estimated Creatinine Clearance 110.17 ml/min (50-250); Globulin 2.7 g/dL (2.2-4.2); Glucose 99 mg/dL (70-99); Low Density Lipoprotein Calc. 137 mg/dL; Potassium 4.3 mmol/L (3.3-5.1); Triglycerides 98 mg/dL; Very Low Density Lipoprotein 20 mg/dL (5-40); cholesterol:hdl ratio screen 4.36
[2025-05-24 07:37] LABS: Hematocrit 43.9 % (40-54); Hemoglobin 14.9 g/dL (13.0-16.5); Mean Corp Hgb Conc 33.9 g/dL (32-36); Mean Corpuscular Volume 85.4 fL (80-94); Mean Platelet Vol. 10.6 fl (6.2-12.0); Platelet Count 153 K/mm3 (150-450); RBC Distribution Width CV 12.9 % (11.6-14.6); RBC Distribution Width SD 39.9 fl (35.1-43.9); Red Blood Count 5.14 M/mm3 (4.6-6.2); White Blood Count 6.8 K/mm3 (4.4-11.0)
[2025-05-24 07:38] LABS: Immature Granulocytes Count 0.040 X10^3/uL (0.0-0.0)
[2025-05-24] MEDS: Aspirin E.C. 81 MG Tablet PO (09:38)
--- NOTE | 2025-05-24 10:03 | PCM.CONS.C ---
Assessment & Plan Assessment/Plan (1) Non-STEMI (non-ST elevated myocardial infarction): PLAN: Patient's symptoms are somewhat atypical of angina however his troponins are positive and his ECG shows ST segment depression in anterior leads. He does have significant risk factor profile. I would recommend the patient undergo left heart catheterization the procedure risk/benefit and alternatives were explained to the patient who voiced understanding and agrees to proceed. The catheterization will be done later today. (2) Hypercholesterolemia: PLAN: Patient's lipids showed a total of 203 triglycerides 98 LDL 137 and HDL 47. The patient has been intolerant of simvastatin and rosuvastatin. Even at low doses. I recommend the patient be considered for Repatha or other injectable as financially available to the patient. This can be addressed in the ambulatory setting. (3) Morbid obesity: PLAN: Patient's BMI is 46. The patient admits to dietary indiscretion recently. He also acknowledges the fact he needs to take care of himself as far as weight loss and better dietary modifications and management. PLAN: Plan 1. Will proceed with left heart catheterization. 2. Further recommendations to follow. HPI Consult Data Date of Consult: 05/24/25 HPI Narrative Reason for Consultation: Chest pain with positive enzymes. HPI Narrative: JONATHAN SIEGEL, is a 54 M who presents history of chest discomfort that started the evening prior to his admission 05/23/2025. The patient ate supper and then developed some discomfort in his chest he felt like it was something stuck in his esophagus. Despite multiple maneuvers it never completely resolved it became much more intense on the day of admission 05/23/2025. He presented to the emergency department where his initial troponin was 49-second troponin 71 third troponin 145. His ECG showed sinus tachycardia at 105 bpm with left axis deviation and ST depressions across the anterior septal leads. A repeat ECG has not been performed. Currently the patient is pain-free on IV heparin. Patient has a positive family history of coronary disease his hemoglobin A1c is 5.8 he is obese. The patient denies smoking. The patient does have hyperlipidemia intolerant to multiple statins. He was on no medications in his home environment. He does not have a history of hypertension. The patient has no known allergies he is has had IVP dye in the past without incident. [facility] Medical History (Updated 05/24/25 @ 10:[address] Alejandro Fermin MD) CKD (chronic kidney disease), stage II Morbid obesity Hypercholesterolemia Home Medications ?Medication ?Instructions ?Recorded ?Last Taken ?Type NK 05/23/25 Unknown History Allergy/AdvReac Type Severity Reaction Status Date / Time No Known Allergies Allergy Verified 05/23/25 11:52 Family History Mother Heart disease Hypertension Diabetes CVA (cerebral vascular accident) Father Heart disease Hypertension Diabetes Surgical History Status post wisdom tooth extraction Hx of knee surgery Social History household members: spouse Smoking Status: Never smoker alcohol intake: current alcohol intake frequency: holidays/special occasions only Alcohol type: beer substance use type: does not use ROS Constitutional Constitutional: Reports as per HPI Eyes Eyes: Reports systems reviewed and no addt'l complaints, except as documented ENT HEENT: Reports systems reviewed and no addt'l complaints, except as documented Cardiovascular Cardiovascular: Reports as per HPI Respiratory/Chest Respiratory/Chest: Reports systems reviewed and no addt'l complaints, except as documented Gastrointestinal Gastrointestinal: Reports as per HPI Genitourinary Genitourinary: Reports systems reviewed and no addt'l complaints, except as documented Musculoskeletal Musculoskeletal: Reports systems reviewed and no addt'l complaints, except as documented Integumentary Integumentary: Reports systems reviewed and no addt'l complaints, except as documented Neurologic Neurologic: Reports systems reviewed and no addt'l complaints, except as documented Psychiatric Psychiatric: Reports systems reviewed and no addt'l complaints, except as documented Endocrine Endocrinology: Reports as per HPI Hematologic/Lymphatic Hematologic/Lymphatic: Reports systems reviewed and no addt'l complaints, except as documented Allergic/Immunologic Allergic/Immunologic: Reports systems reviewed and no addt'l complaints, except as documented Physical Exam Const alert and oriented x3 HEENT normocephalic Eyes EOMs intact bilaterally Neck no carotid bruits Chest Chest Narrative: Increased AP diameter. Resp normal respiratory effort and clear to auscultation bilaterally Cardio Cardio Narrative: Distant heart tones due to body habitus Rate: regular rate Rhythm: regular rhythm Heart Sounds: S1 normal and S2 normal; Negative for click, gallop or murmur GI GI Narrative: Obese Extremity no pedal edema Neuro Neuro Narrative: Alert and oriented x 3 Psych mental status grossly normal Risk Stratification Risk Stratification Applicable: Yes Age >/= 65: No >/= 3 CAD Risk Factors (HTN, HLD, DM, family hx of CAD, or current smoker): Yes Aspirin Use in the Past 7 Days: No Severe Angina (>/= episodes in 24 hours): Yes EKG ST Changes >/= 0.5mm: Yes Positive Cardiac Marker: Yes KAREEM Risk Stratification Score: 4 KAREEM % Risk: 20% Risk Charges/Coding Visit Charges Inpatient E&M: 13410 Init Hosp L2 Objective Data Vital Signs: Vital Signs Temp Pulse Resp BP Pulse Ox O2 Del Method FiO2 97.7 F L 86 17 114/75 97 Room Air 21 05/24/25 09:33 05/24/25 09:39 05/24/25 09:33 05/24/25 09:33 05/24/25 09:33 05/24/25 09:49 05/23/25 22:10 Oxygen Delivery Method Room Air Weight: 304 lb 10.861 oz Body Mass Index (BMI) 46.3 Intake & Output: Intake and Output for Last 24 Hours 05/22/25 05/23/25 05/24/25 23:59 23:59 23:59 Intake Total 425.17 / 491.84 149.54 / 149.54 Balance 425.17 / 491.84 149.54 / 149.54 Lab / Micro Data Attestation: I reviewed the patient's lab results. 05/24/25 05:56 05/24/25 05:56 Labs: Laboratory Results - last 24 hr 05/23/25 12:15: WBC 5.4, RBC 5.46, Hgb 15.5, Hct 45.5, MCV 83.3, MCH 28.4, MCHC 34.1, RDW Std Deviation 38.2, RDW Coeff of Basil 12.7, Plt Count 167, MPV 10.0, Immature Gran % (Auto) 0.400, Neut % (Auto) 74.3 H, Lymph % (Auto) 14.6 L, Gibson % (Auto) 7.6, Eos % (Auto) 2.4, Baso % (Auto) 0.7, Absolute Neuts (auto) 4.0, Absolute Lymphs (auto) 0.79 L, Nucleated RBC % 0, PT 13.5, INR 1.0, APTT 26.2, D-Dimer Quant (PE/DVT) 0.39, Sodium 135, Potassium 4.4, Chloride 102, Carbon Dioxide 22.4, Anion Gap 11, BUN 13, Creatinine 1.26 H, Estim Creat Clear Calc 89.11, Est GFR (MDRD) Non-Af 67, BUN/Creatinine Ratio 10.3, Glucose 150 H, Calcium 9.0, Troponin T High Sens 49 H 05/23/25 14:07: Magnesium 2.1, Troponin T Hi Sens 2 Hr 71 H* 05/23/25 16:20: Troponin T Hi Sens 4Hr 145 H* 05/23/25 23:23: APTT 46.6 H 05/24/25 05:56: WBC 6.8, RBC 5.14, Hgb 14.9, Hct 43.9, MCV 85.4, MCH 29.0, MCHC 33.9, RDW Std Deviation 39.9, RDW Coeff of Basil 12.9, Plt Count 153, MPV 10.6, Immature Gran % (Auto) 0.600, Neut % (Auto) 64.5, Lymph % (Auto) 20.1, Gibson % (Auto) 10.4 H, Eos % (Auto) 3.7, Baso % (Auto) 0.7, Absolute Neuts (auto) 4.4, Absolute Lymphs (auto) 1.36, APTT 61.5 H, Sodium 139, Potassium 4.3, Chloride 104, Carbon Dioxide 24.5, Anion Gap 10, BUN 13, Creatinine 1.02, Estim Creat Clear Calc 110.17, Est GFR (MDRD) Non-Af 86, BUN/Creatinine Ratio 13.0, Glucose 99, Hemoglobin A1c 5.8 H, Calcium 9.0, Total Bilirubin 0.54, AST 121 H, ALT 38, Alkaline Phosphatase 79, Total Protein 6.6, Albumin 4.0, Globulin 2.7, Albumin/Globulin Ratio 1.5, Triglycerides 98, Cholesterol 203 H, LDL Cholesterol, Calc 137, VLDL Cholesterol 20, HDL Cholesterol 47, Cholesterol/HDL Ratio 4.36 Cardiology Labs/Tests 05/23/25 12:15: WBC 5.4, RBC 5.46, Hgb 15.5, Hct 45.5, MCV 83.3, MCH 28.4, MCHC 34.1, Plt Count 167, MPV 10.0, Immature Gran % (Auto) 0.400, Neut % (Auto) 74.3 H, Lymph % (Auto) 14.6 L, Gibson % (Auto) 7.6, Eos % (Auto) 2.4, Baso % (Auto) 0.7, Absolute Neuts (auto) 4.0, Nucleated RBC % 0, PT 13.5, INR 1.0, APTT 26.2, D-Dimer Quant (PE/DVT) 0.39, Sodium 135, Potassium 4.4, Chloride 102, Carbon Dioxide 22.4, Anion Gap 11, BUN 13, Creatinine 1.26 H, Est GFR (MDRD) Non-Af 67, BUN/Creatinine Ratio 10.3, Glucose 150 H, Calcium 9.0 05/23/25 14:07: Magnesium 2.1 05/23/25 23:23: APTT 46.6 H 05/24/25 05:56: WBC 6.8, RBC 5.14, Hgb 14.9, Hct 43.9, MCV 85.4, MCH 29.0, MCHC 33.9, Plt Count 153, MPV 10.6, Immature Gran % (Auto) 0.600, Neut % (Auto) 64.5, Lymph % (Auto) 20.1, Gibson % (Auto) 10.4 H, Eos % (Auto) 3.7, Baso % (Auto) 0.7, Absolute Neuts (auto) 4.4, APTT 61.5 H, Sodium 139, Potassium 4.3, Chloride 104, Carbon Dioxide 24.5, Anion Gap 10, BUN 13, Creatinine 1.02, Est GFR (MDRD) Non-Af 86, BUN/Creatinine Ratio 13.0, Glucose 99, Hemoglobin A1c 5.8 H, Calcium 9.0, Total Bilirubin 0.54, Triglycerides 98, Cholesterol 203 H, VLDL Cholesterol 20, HDL Cholesterol 47, Cholesterol/HDL Ratio 4.36 Rhythm: EKG: ECHO: Stress Test: Cardiac Cath: PCI: CT Surgery: Holter monitor: EPS: PPM: CXR: Chest CT Scan: Radiography Diagnostic Testing: Radiology Impression Chest X-Ray 05/23/25 12:20 IMPRESSION: Negative Chest. Reading Location: [facility]
--- NOTE | 2025-05-24 11:25 | CASEMGMT ---
RN CM Face to Face with patient for initial transition planning/care coordination assessment. RN CM introduced self and role at [facility]. Patient lying in bed, alert and oriented, at bedside. Patient willing to participate in assessment and is able to answer all questions appropriately. Care providers, pharmacy, and demographics verified. Strata: 1 PCP: Sheyla Specialists: none Preferred Pharmacy: [facility] Insurance: [place] Prescription Benefit: yes Living Will/HPOA: yes, Kasia Romero LNOK: Living Arrangements: Patient lives with in a single story home with 2 steps to enter. Patient is independent at home. Transportation: self, DME/HHC: Patient denies DME in the home. No previous HHC or SNF. Patient wishes to discharge home, denies need for home health at this time. Patient states he has no further needs or concerns at this time. CM to follow for discharge planning needs that may arise. Disposition Plan: Patient to discharge home with family support and follow-up plans in place. Naheed MONZON, RN, CM
--- NOTE | 2025-05-24 11:30 | CASEMGMT ---
RN CM Face to Face with patient for initial transition planning/care coordination assessment. RN CM introduced self and role at [facility]. Patient lying in bed, alert and oriented. Patient willing to participate in assessment and is able to answer all questions appropriately. Care providers, pharmacy, and demographics verified. Strata: 1 PCP: Adrian Specialists: none Preferred Pharmacy: [facility] [place] Prescription Benefit: yes Living Will/HPOA: none LNOK: Living Arrangements: Arely lives with in a single story home with 2 steps to enter. Patient states she is independent at home but assists at times. Transportation: self, DME/HHC: Patient has shower chair, lift chair, grab bars, rollator, wheelchair, cpap, nebulizer, pulse ox, and lymphedema boots at home. Patient has had HHC in the past. Patient has been to [facility] in vel past. Patient wishes to discharge home, denies need for home health at this time. Patient states he has no further needs or concerns at this time. CM to follow for discharge planning needs that may arise. Disposition Plan: Patient to discharge home with family support and follow-up plans in place. Naheed MONZON, RN, CM
--- NOTE | 2025-05-24 11:41 | NURSING ---
Report called to STANTON Tilley in semiconductor lab technician.
[2025-05-24] MEDS: 0.9% Saline Lock 10 ML Syringe IV ×2 (11:45→17:25)
--- NOTE | 2025-05-24 14:00 | CASEMGMT ---
Tertiary Insurance review for hospitals In-network with [facility] insurance if transfer is recommended is as follows: [facility], [facility] [place], [facility], [facility], [facility], , [place], [facility], [facility], and [place]. Lisha Conner, Discharge Planning Asst.
--- NOTE | 2025-05-24 18:29 | PN.HOSP_ITS ---
Reason for Visit Chief Complaint: Chest pain. Subjective Subjective Patient was seen and examined today, I talked with cardiology about his care, it was decided that the patient should undergo cardiac catheterization today, it showed triple-vessel disease and the patient is currently on a waiting list to go to [facility] in [facility]. Objective Data Objective Data Vital Signs: Vital Signs Temp Pulse Resp BP Pulse Ox O2 Del Method FiO2 98.3 F 86 17 119/82 H 99 Room Air 21 05/24/25 16:06 05/24/25 16:06 05/24/25 16:06 05/24/25 16:06 05/24/25 16:06 05/24/25 16:06 05/23/25 22:10 Oxygen Delivery Method Room Air Weight: 138.2 kg Body Mass Index (BMI) 46.3 Intake & Output: Intake and Output for Last 24 Hours 05/22/25 05/23/25 05/24/25 23:59 23:59 23:59 Intake Total 425.17 / 491.84 1745.92 / 1745.92 Balance 425.17 / 491.84 1745.92 / 1745.92 Lab / Micro Data 05/24/25 05:56 05/24/25 05:56 Labs: Laboratory Results - last 24 hr 05/23/25 23:23: APTT 46.6 H 05/24/25 05:56: WBC 6.8, RBC 5.14, Hgb 14.9, Hct 43.9, MCV 85.4, MCH 29.0, MCHC 33.9, RDW Std Deviation 39.9, RDW Coeff of Basil 12.9, Plt Count 153, MPV 10.6, Immature Gran % (Auto) 0.600, Neut % (Auto) 64.5, Lymph % (Auto) 20.1, [place] % (Auto) 10.4 H, Eos % (Auto) 3.7, Baso % (Auto) 0.7, Absolute Neuts (auto) 4.4, Absolute Lymphs (auto) 1.36, APTT 61.5 H, Sodium 139, Potassium 4.3, Chloride 104, Carbon Dioxide 24.5, Anion Gap 10, BUN 13, Creatinine 1.02, Estim Creat Clear Calc 110.17, Est GFR (MDRD) Non-Af 86, BUN/Creatinine Ratio 13.0, Glucose 99, Hemoglobin A1c 5.8 H, Calcium 9.0, Total Bilirubin 0.54, AST 121 H, ALT 38, Alkaline Phosphatase 79, Total Protein 6.6, Albumin 4.0, Globulin 2.7, Albumin/Globulin Ratio 1.5, Triglycerides 98, Cholesterol 203 H, LDL Cholesterol, Calc 137, VLDL Cholesterol 20, HDL Cholesterol 47, Cholesterol/HDL Ratio 4.36 Radiography Diagnostic Testing: Radiology Impression Echocardiogram 05/24/25 05:55 Interpretation Summary The study was technically difficult. Mild concentric left ventricular hypertrophy. The LV ejection fraction is 65 %. Stage 1 diastolic dysfunction. Ordering Physician: Odessa Sanchez Performed By: Arsh Thomas RCS Physical Exam Const alert, oriented x3, no apparent distress and healthy appearing Constitutional Narrative: Patient has class III obesity General Appearance: cooperative, well kempt and well developed Orientation / Consciousness: awake, oriented to person, oriented to place and oriented to time HEENT normocephalic and moist oral mucous membranes Eyes PERRL, EOMs intact bilaterally and conjunctivae normal Neck supple, no JVD, thyroid normal and no carotid bruits General: trachea midline Resp normal respiratory effort and clear to auscultation bilaterally Auscultation: Negative for rales, rhonchi or wheezes Cardio regular rate, regular rhythm, no murmurs, no rub and no gallops GI normal to inspection, nondistended, normoactive bowel sounds, soft to palpation, non-tender and non-distended Extremity no clubbing, cyanosis or edema Skin no rashes or lesions noted General Skin Exam: no breakdown Neuro oriented x3, CN's II-XII intact bilaterally, no focal motor deficits and no sensory deficits noted Sensorium / Orientation: awake and alert Speech: speech normal Psych affect normal Assessment & Plan Assessment/Plan (1) Non-STEMI (non-ST elevated myocardial infarction): PLAN: Plan 1. [id number] patient is on a waiting list to go to [facility] for further care due to triple-vessel disease, he will remain on a heparin drip at this time #2 class III obesity-complicates care, management, recovery, and prognosis #3 hyperlipidemia-patient is now on a statin Total clinical time spent by myself addressing the patient's medical issues, reviewing all of his data, and collaborating with the patient's care team: 35 minutes Charges/Coding Visit Charges Inpatient E&M: 97927 Subs Hosp L2
[2025-05-24] MEDS: HEPARIN/D5w 25,000 UNITS 25,000 UNITS/250 ML IV.SOLN. 11 UNITS CONT INF (21:26)
[2025-05-25] VITALS (7 sets, daily range): BP systolic 116–136; BP diastolic 81–86; PULSE 71–77; RESP 16–17; TEMP 36.6–36.9; O2SAT 95–98; BMI 46.0
[2025-05-25 00:12] LABS: Partial Thromboplast Time 46.5 Seconds (24.1-36.2)
--- NOTE | 2025-05-25 07:59 | PCM.PN.CARD ---
Subjective Subjective Patient denies any anginal symptoms. Still awaiting transfer to [facility] for surgical evaluation and treatment. Tolerating reinstitution of heparin without incident. Objective Data Vital Signs: Vital Signs Temp Pulse Resp BP Pulse Ox O2 Del Method FiO2 97.8 F 71 16 116/85 H 98 Room Air 21 05/25/25 03:28 05/25/25 03:28 05/25/25 03:28 05/25/25 03:28 05/25/25 03:28 05/25/25 03:28 05/23/25 22:10 Oxygen Delivery Method Room Air Weight: 302 lb 7.587 oz Body Mass Index (BMI) 46.0 Intake & Output: Intake and Output for Last 24 Hours 05/23/25 05/24/25 05/25/25 23:59 23:59 23:59 Intake Total 425.17 / 491.84 1790.10 / 1790.10 37.4 / 37.4 Balance 425.17 / 491.84 1790.10 / 1790.10 37.4 / 37.4 Lab / Micro Data Attestation: I reviewed the patient's lab results. 05/24/25 05:56 05/24/25 05:56 Labs: Laboratory Results - last 24 hr 05/24/25 22:44: APTT 46.5 H Rhythm Strip Rhythm Strip: Sinus Rhythm Rate: 77 Cardiology Labs/Tests 05/24/25 22:44: APTT 46.5 H Rhythm: EKG: ECHO: Stress Test: Cardiac Cath: PCI: CT Surgery: Holter monitor: EPS: PPM: CXR: Chest CT Scan: Radiography Diagnostic Testing: Radiology Impression Echocardiogram 05/24/25 05:55 Interpretation Summary The study was technically difficult. Mild concentric left ventricular hypertrophy. The LV ejection fraction is 65 %. Stage 1 diastolic dysfunction. Ordering Physician: Odessa Sanchez Performed By: Arsh Thomas RCS Physical Exam Const alert and oriented x3 HEENT normocephalic Eyes EOMs intact bilaterally Chest inspection of chest normal Resp normal respiratory effort Cardio Rate: regular rate Rhythm: regular rhythm Peripheral Pulses: radial pulses present right (No evidence of ecchymoses. Normal tactile sensation of the fingers of the right hand and normal capillary refill.) 2+ Extremity no pedal edema Neuro Neuro Narrative: Alert and oriented x 3 Psych mental status grossly normal Assessment & Plan Assessment/Plan (1) Non-STEMI (non-ST elevated myocardial infarction): PLAN: Patient presented with minimal bump in his enzymes. Catheterization revealed severe triple-vessel disease. Patient is awaiting transfer to [facility] for further surgical evaluation and treatment. PLAN: Plan Transfer to [facility] when bed available. Charges/Coding Visit Charges Inpatient E&M: 46332 Subs Hosp L2
[2025-05-25 09:19] LABS: Partial Thromboplast Time 62.9 Seconds (24.1-36.2)
[2025-05-25] MEDS: HEPARIN/D5w 25,000 UNITS 25,000 UNITS/250 ML IV.SOLN. 12 UNITS CONT INF (09:44)
[2025-05-25] MEDS: Aspirin E.C. 81 MG Tablet PO (10:03)
--- NOTE | 2025-05-25 11:36 | CHAPLAIN ---
Type of Pastoral Visit _x__ Initial Visit ___ Follow-up Visit ___ On-call Visit ___ General Patient Visit ___ Spiritual Assessment ___ Family Conference ___ Bereavement ___ Rapid Response ___ Code Blue ___ Other (describe below) Pastoral Care Referral From _x__ Patient _x__ Family ___ Nurse ___ Physician ___ Wrestling Coach ___ Software Integration Developer ___ Other (describe below) Sacrament/Intervention _x__ Active listening ___ Anointing ___ Holiness ___ Bereavement ___ Communion _x__ Nemo exploration ___ _x__ Life review _x__ Prayer ___ Reconciliation ___ Sacrament of Sick _x__ Supportive presence ___ Wedding ___ Other (describe below) Pastoral Comments patient and spouse are in the room; pt is welcoming and openly addresses his surprise at outcome of this admission which will be a transfer for open heart surgery; pt speaks of family history of heart disease and heart attacks leading to ; pt admits that he has been emotional through all of this news and testing; pt is given time to talk, process, and express any needs or concerns; pt affirms his nemo in God and believes that he will be fine no matter what the outcome will be, while acknowledging an emotional upheaval within; pt speaks of concerns for his family if he were not to survive; spouse is also active in this conversation; pt does have good support from his nemo community and friends; pt welcomes prayer and presence; pt gives compliments to the staff who have been wonderful
[2025-05-25 15:27] LABS: Partial Thromboplast Time 64.0 Seconds (24.1-36.2)
--- NOTE | 2025-05-25 17:24 | PCM.PN.HOSP ---
Reason for Visit Chief Complaint: Chest pain. Subjective Subjective Patient was seen and examined today, he has no complaints of any chest pain. He has no complaints of shortness of breath Objective Data Objective Data Vital Signs: Vital Signs Temp Pulse Resp BP Pulse Ox O2 Del Method FiO2 98.3 F 75 17 136/86 H 97 Room Air 21 05/25/25 15:55 05/25/25 15:55 05/25/25 15:55 05/25/25 15:55 05/25/25 15:55 05/25/25 15:55 05/23/25 22:10 Oxygen Delivery Method Room Air Weight: 137.2 kg Body Mass Index (BMI) 46.0 Intake & Output: Intake and Output for Last 24 Hours 05/23/25 05/24/25 05/25/25 23:59 23:59 23:59 Intake Total 425.17 / 491.84 1790.10 / 1790.10 216.0 / 216.0 Balance 425.17 / 491.84 1790.10 / 1790.10 216.0 / 216.0 Lab / Micro Data 05/24/25 05:56 05/24/25 05:56 Labs: Laboratory Results - last 24 hr 05/24/25 22:44: APTT 46.5 H 05/25/25 08:40: APTT 62.9 H 05/25/25 15:07: APTT 64.0 H Rhythm Strip Rhythm Strip: Sinus Rhythm Rate: 77 Physical Exam Const alert, oriented x3 and no apparent distress Constitutional Narrative: Patient has class III obesity General Appearance: cooperative, well kempt and well developed Orientation / Consciousness: awake, oriented to person, oriented to place and oriented to time HEENT normocephalic and moist oral mucous membranes Eyes PERRL, EOMs intact bilaterally and conjunctivae normal Neck supple, no JVD, thyroid normal and no carotid bruits General: trachea midline Resp normal respiratory effort and clear to auscultation bilaterally Auscultation: Negative for rales, rhonchi or wheezes Cardio regular rate, regular rhythm, no murmurs, no rub and no gallops GI normal to inspection, nondistended, normoactive bowel sounds, soft to palpation, non-tender and non-distended Extremity no clubbing, cyanosis or edema Skin no rashes or lesions noted General Skin Exam: no breakdown Neuro oriented x3, CN's II-XII intact bilaterally, no focal motor deficits and no sensory deficits noted Sensorium / Orientation: awake and alert Speech: speech normal Psych affect normal Assessment & Plan Assessment/Plan (1) Multi-vessel coronary artery stenosis: (2) Non-STEMI (non-ST elevated myocardial infarction): PLAN: Plan 1. [id number] patient is on a waiting list to go to [facility] for further care due to triple-vessel disease, he will remain on a heparin drip at this time, he is on an aspirin and a statin as well as a beta-johnny at this time #2 class III obesity-complicates care, management, recovery, and prognosis #3 hyperlipidemia-patient is now on a statin Total clinical time spent by myself addressing the patient's medical issues, reviewing all of his data, and collaborating with the patient's care team: 35 minutes Charges/Coding Visit Charges Inpatient E&M: 63656 Subs Hosp L2
[2025-05-25 22:19] LABS: Partial Thromboplast Time 62.5 Seconds (24.1-36.2)
[2025-05-26 02:45] VITALS: BMI 46.0
[2025-05-26 03:20] VITALS: BP 122/83; PULSE 62; RESP 16; TEMP 36.8; O2SAT 94
[2025-05-26 05:58] LABS: Partial Thromboplast Time 75.1 Seconds (24.1-36.2)
[2025-05-26] MEDS: HEPARIN/D5w 25,000 UNITS 25,000 UNITS/250 ML IV.SOLN. 12 UNITS CONT INF (06:06)
--- NOTE | 2025-05-26 07:36 | PCM.PN.HOSP ---
Reason for Visit Chief Complaint: Chest pain. Objective Data Objective Data Vital Signs: Vital Signs Temp Pulse Resp BP Pulse Ox O2 Del Method FiO2 98.2 F 62 16 122/83 H 94 Room Air 21 05/26/25 03:20 05/26/25 03:20 05/26/25 03:20 05/26/25 03:20 05/26/25 03:20 05/26/25 03:30 05/23/25 22:10 Oxygen Delivery Method Room Air Weight: 302 lb 7.587 oz Body Mass Index (BMI) 46.0 Intake & Output: Intake and Output for Last 24 Hours 05/24/25 05/25/25 05/26/25 23:59 23:59 23:59 Intake Total 1790.10 / 1790.10 216.0 / 216.0 178.6 / 178.6 Balance 1790.10 / 1790.10 216.0 / 216.0 178.6 / 178.6 Lab / Micro Data 05/24/25 05:56 05/24/25 05:56 Labs: Laboratory Results - last 24 hr 05/25/25 08:40: APTT 62.9 H 05/25/25 15:07: APTT 64.0 H 05/25/25 21:11: APTT 62.5 H 05/26/25 05:37: APTT 75.1 H Rhythm Strip Rhythm Strip: Sinus Rhythm Rate: 77 Physical Exam Narrative Seen and examined No acute chest pain no shortness of breath. Waiting for blood to be transferred Physical exam General: Alert, Oriented x3, Cooperative. BMI 46.0 kg/m? HEENT: Atraumatic, PERRLA, EOMI, Normocephalic. Oral: No Gingival or Mucosal Lesions/ Ulcerations Neck: Supple, No JVD, Negative Carotid Bruits Chest wall/Lungs: Air entry diminished in bilateral lung bases. No crepitation/rhonchi Cardiovascular: Regular rate and rhythm, Normal S1,S2, No M/G/R Abdomen: Bowel Sounds Present, Soft, Non Tender, Non-Distended : No dysuria. No renal angle tenderness. No suprapubic tenderness. Extremities: Mild forearms and hand edema due to IV line/phlebotomy. Bilateral lower legs edema, 2+ Skin: No rashes, No breakdown Musculoskeletal: No Tenderness to Palpation of Joints or Extremities Neurological: Cranial nerves II-XII grossly intact, DTR 2+/4. No acute focal neurological deficit. Psych/Mental Status: Normal Affect, Appropriate. Assessment & Plan Assessment/Plan (1) Multi-vessel coronary artery stenosis: (2) Non-STEMI (non-ST elevated myocardial infarction): PLAN: Plan 1. [id number] patient is on a waiting list to go to [facility] for further care due to triple-vessel disease, continue heparin drip at this time, he is on an aspirin and a statin as well as a beta-johnny at this time Cardiac cath showed triple-vessel disease involving moderately severe 70% proximal to mid LAD, 1st and 2nd diagonal branches, 1st and 2nd obtuse marginal and large posterolateral vessel. EF 60% by LV gram #2 morbid obesity: BMI 46.0 kg/m?-complicates care, management, recovery, and prognosis #3 hyperlipidemia-patient is now on a statin Laboratory Results 05/25/25 21:11: APTT 62.5 H 05/26/25 05:37: APTT 75.1 H 05/26/25 13:06: APTT 55.8 H Charges/Coding Visit Charges Inpatient E&M: 58649 Subs Hosp L2
[2025-05-26 08:51] VITALS: PULSE 78
[2025-05-26] MEDS: Aspirin E.C. 81 MG Tablet PO (08:51)
[2025-05-26 13:48] LABS: Partial Thromboplast Time 55.8 Seconds (24.1-36.2)
[2025-05-26 14:19] VITALS: BP 148/75; PULSE 81; RESP 16; TEMP 36.1; O2SAT 98
--- NOTE | 2025-05-26 19:42 | DS.PCM_ITS ---
Providers Date of Admission: 05/23/25 Date of Discharge: 05/26/25 Primary Care Physician: Dr. Sotero Carrion MD Consultations 05/23/25 16:15 Consult: Cardiology Routine Consulting Provider: [facility] Reason for Consult: Chest Pain, NSTEMI rule in. EMERGENT Consult: No MD Notified: Yes Date Notified: 05/23/25 Time Notified: 15:17 Method of Notification: ED Physician Initiated Reason For Visit: NSTEMI, CHEST PAIN Diagnosis Discharge Diagnosis (1) Multi-vessel coronary artery stenosis: Status: Chronic Code(s): I25.10 - Atherosclerotic heart disease of [place] coronary artery without angina pectoris (2) Non-STEMI (non-ST elevated myocardial infarction): Status: Acute Code(s): I21.4 - Non-ST elevation (NSTEMI) myocardial infarction Plan 54-year-old gentleman was admitted with chest pain that started 1 day before admission. Patient was having dinner and at that time pain started, was constant. Please see H&P for detail. 1. [id number] is admitted in PCU. Twelve-lead EKG showed ST depression in leads II and aVF, V3-V6 with no prior EKGs to compare, suggestive of ischemia. There are also elevated troponins 49 and 71. Production Technician was consulted and patient was started on IV heparin drip, aspirin. Cardiac cath was done. Cardiac cath showed triple-vessel disease involving moderately severe 70% proximal to mid LAD, 1st and 2nd diagonal branches, 1st and 2nd obtuse marginal and large posterolateral vessel. EF 60% by LV gram The patient is on a waiting list to go to [facility] for further care due to triple-vessel disease, continue heparin drip at this time, he is on an aspirin and a statin as well as a beta-johnny at this time #2 morbid obesity: BMI 46.0 kg/m?-complicates care, management, recovery, and prognosis #3 hyperlipidemia-patient is now on a statin Patient transferred to [facility] in the evening. Laboratory Results 05/25/25 21:11: APTT 62.5 H 05/26/25 05:37: APTT 75.1 H 05/26/25 13:06: APTT 55.8 H Medications at Discharge Home Medications NK 05/23/25 Physical Exam Narrative Please see exam findings of the same day. Weight / BMI Weight Weight: 302 lb 7.587 oz Body Mass Index (BMI) 46.0 ABG / Lab / Microbiology Data 05/24/25 05:56 05/24/25 05:56 Laboratory: Laboratory Results - last 24 hr 05/26/25 13:06: APTT 55.8 H D/C Instructions DC O2, CPAP, BIPAP Needs Home O2 Discharge instructions: No Meaningful Use Info Meaningful Use Meaningful Use Diagnoses (Choose all that apply): None applicable Discharge Plan Admission Admit Date/Time: 05/23/25 15:16 Primary Reason for Your Visit: NSTEMI Attending Provider: Valentín June Primary Care Provider: Sotero Carrion Consulting Providers: Odessa Sanchez; Andres Shea; Pamela Casper; Korin Gonzales; Luis Miguel Duke; Ivan Gonzalez; Bret Dudley; Yassine Matta; Shakeel Paulino; Alejandro Fermin; Ysabel Lala; James Beltran; Cristobal Bansal; Ignacio Ren NP; Angelika Richardson; Christiano Rosales; Clyde Alex Discharge Orders/Prescriptions Prescriptions: No Action NK Referrals / Follow Up: Sotero Carrion MD [Primary Care Provider] - Disposition Disposition (needs filled in before D/C Order can be placed): Acute [facility]
--- NOTE | 2025-05-26 19:58 | NURSING ---
report called to [facility] spoke with Kendra EID, transport getting ready to take pt to [facility].
[2025-05-26 20:00] VITALS: BP 135/91; PULSE 83; RESP 17; TEMP 36.8; O2SAT 97
--- NOTE | 2025-06-21 09:46 | CL.D_ITS ---
Patient Name: JONATHAN SIGEEL Study Date: 05/24/2025 Performing: Yassine Matta MD Ht: 68 inches 172.72 cm : 1970 Wt: 305.1 lbs 138.2 kg Age: 54 Gender: male BSA: 2.44 PROCEDURE(S) PERFORMED [id number])LHC/COR/LV CLINICAL PROFILE AND INDICATIONS Indications: Suspected CAD Heart Failure: None Stress/Imaging Stress/Image Study Performed: No CAD Presentations: Non-STEMI. Symptom onset Date/Time: 05/24/25 Time Not Available CONCLUSIONS Triple-vessel disease involving the proximal to mid LAD, 1st and 2nd diagonal branches, 1st and 2nd obtuse marginal branch, and a large posterolateral vessel with preserved ejection fraction. RECOMMENDATIONS Surgery consult for coronary revascularization DESCRIPTION OF PROCEDURE The patient arrived to the procedure lab. The risks and benefits of the procedure as well as a full description of our services here and current unavailability of surgical backup were fully explained to the patient and/or their significant other prior to the catheterization. The Timeout was completed, verifying the correct patient and procedure. The patient's procedural site was prepped and draped in the usual fashion. Local anesthetic was given subcutaneously to right radial region with Lidocaine 2%. Using a modified Seldinger technique, arterial access was obtained via the right radial artery, a 6Fr sheath was inserted. Left Coronary Artery selective angiography was performed in multiple views using a 5 Fr. 4.0 Bourbon catheter. Right Coronary Artery selective angiography was then performed in multiple views using a 5 Fr. JR 5 catheter. Left Ventriculography was performed in GERONIMO projection using a 5 Fr. Pigtail catheter. LV to AO pullback pressures were then recorded.The arterial sheath was pulled and a TR Band was applied for hemostasis 14 ml of air CORONARY ANGIOGRAPHY DOMINANCE: Right Dominant LEFT HEART ASSESSMENT Left Ventricular Ejection Fraction: by LV Gram 60 % Normal LV wall motion Normal Left Ventricular systolic function LEFT MAIN: Angiographically normal LEFT ANTERIOR DESCENDING ARTERY: Left anterior descending artery has a moderately severe 70% proximal to mid stenosis. The first diagonal vessel has a 90% stenosis which bifurcates in the second diagonal vessel has a 70% stenosis in the third diagonal vessel has minimal disease. CIRCUMFLEX ARTERY: The left circumflex artery is a medium size vessel with a first obtuse marginal branch which has a 90% stenosis and bifurcates, the second obtuse marginal branch has an 80% stenosis and bifurcates. RIGHT CORONARY ARTERY: Mild luminal irregularities RT PLV: 70 % Stenosis COMPLICATIONS No Complications PROCEDURE MEDICATIONS Fentanyl 50 mcg IV Versed 1 mg IV Oxygen: 2 L/min via nasal cannula Heparin given IA 05/24/2025 12:36:32 Verapamil 2.5mg, Ntg 100mcgs, 3000 units of Heparin given IA 05/24/2025 12:36:32 SUMMARY OF HEMODYNAMIC DATA Time AIR REST ECG 12:07:26 AO 114/87 (99) SA 12:44:05 LV 114/22, 37 12:59:54 LV 113/22, 31 13:00:02 LV 118/23, 34 13:00:34 LV 125/25, 35 13:00:42 LVp 123/25, 34 13:00:45 AOp 113/79 (97) 13:00:52 Signed By Yassine Matta MD On 05/24/2025 14:03:33 Yassine Matta MD
== END 2025-05-26 20:10 | disposition short-term general hospital (02) | DRG 281 ==
LOC: ED 15:22 → PCU 05-24 07:11
PROVIDERS: Internal Medicine; Internal Medicine Cardiovascular Disease; Admitting Provider Family Medicine; Emergency Provider Emergency Medicine; PCP Family Medicine; Visit Provider Internal Medicine
DX: I21.4 Non-ST elevation (NSTEMI) myocardial infarction (principal); Z68.42 Body mass index [BMI] 45.0-49.9, adult; E66.813 Obesity, class 3; N18.2 Chronic kidney disease, stage 2 (mild); I25.10 Atherosclerotic heart disease of native coronary artery without angina pectoris; E78.2 Mixed hyperlipidemia; G47.33 Obstructive sleep apnea (adult) (pediatric); R03.0 Elevated blood-pressure reading, without diagnosis of hypertension; R73.9 Hyperglycemia, unspecified
CPT/HCPCS: 36415; 71045; 80048; 80053; 80061; 83036; 83735; 84484; 85025; 85379; 85610; 85730; 93005; 93306; 93458; 94668; 94762; 97802; 99152; 99153; 99252; 99285; Q9957; Q9967; A4216; C1769; C1894; C8929; G0463

== ENCOUNTER → 2025-06-14 | Outpatient (CLI) | payer BC, SELFPAY ==
--- NOTE | 2025-06-14 14:02 | PCM.CR.HP2 ---
CR - History & Physical General Arrival date:: 06/14/25 Arrival time:: 14:05 Date of Referral:: 06/09/25 Date of CR Evaluation:: 06/14/25 Referring Physician: Dr. Fermin Primary Diagnosis: PCI w/ stenting History of Present Cardiac Event Onset Date PTCA or coronary stenting:: Yes (onset05/31/2025) Vessel: OM and posterior ventricular branches Medications Ambulatory Orders ?Medication ?Instructions ?Recorded acetaminophen 325 mg tablet 650 mg PO ONCE PRN 06/09/25 aspirin 81 mg tablet,delayed 81 mg PO QDAY 06/09/25 release (Adult Low Dose Aspirin) ezetimibe 10 mg tablet 10 mg PO QDAY #90 tabs 06/09/25 metoprolol tartrate 25 mg tablet 12.5 mg (1/2 x 25 mg) PO BID #45 06/09/25 tabs nitroglycerin 0.4 mg sublingual mg sublingual 06/09/25 tablet rosuvastatin 20 mg tablet 20 mg PO QHS #90 tabs 06/09/25 ticagrelor 90 mg tablet 90 mg PO BID #180 tabs 06/09/25 Allergies Allergies pravastatin Adverse Reaction (Intermediate, Verified 06/09/25 13:15) myalgias simvastatin Adverse Reaction (Intermediate, Verified 06/09/25 13:15) myalgias Sleep Disorder Evaluation Hx of Sleep Apnea: No Do you snore loudly (louder than talking or can be heard through closed doors)?: No Do you often feel tired/ fatigued/ sleepy during daytime?: No Has anyone observed you stop breathing during sleep?: No History of Hypertension (for STOP score): Yes STOP Results: Negative Advanced Directives Advanced Directives Do you have a Healthcare Power of Director Consumer Affairs?: Yes Living Will: Yes Advance Directives Information Provided: Yes Advance Directives on File: Yes DNR Order?:: No Past Medical History Covid-19 Screening Physicial Symptoms Other Clinical Concerns Exposure Risk Pertinent Comorbidities Has a serious heart condition:: Yes Severely obese (Body Mass Index of 40 or higher):: Yes Past Medical Illness Medical History Non-STEMI (non-ST elevated myocardial infarction) (05/31/25) Multi-vessel coronary artery stenosis (05/23/25) CKD (chronic kidney disease), stage II Morbid obesity Hypercholesterolemia Past Surgical History Surgical History Stented coronary artery (05/31/25) Status post wisdom tooth extraction Hx of knee surgery Family History Summary Family History Mother Heart disease Hypertension Diabetes CVA (cerebral vascular accident) Father Heart disease Hypertension Diabetes Social History Smoking History Smoking Status: Never smoker Hx Smoking Exposure: Yes (secondhand exposure.) Alcohol Use Alcohol Usage: Yes (rare) Occupation Occupation (List type of work in comments):: Employed Hours worked per day:: 10 Social Environment Status Marital Status: Current Living Arrangements Living Environment:: Spouse Children How many children do you have?: 1 Do any of your children live nearby?: Yes Safety Do you feel safe in your surroundings?: Yes Assistance Do you need any assistance at home?: no Review of Systems Review of Systems Hints Review of Present Symptoms: Reports Fatigue, Appetite - Normal and Appetite - Special Diet; Denies Shortness of Breath at Rest, Shortness of Breath with Exertion, PVD, Operative Discomfort, Angina, Wound Healing, Dizziness/Lightheadedness, Heart Arrhythmia/Irregularities, Sleep - Normal or Sexual Changes Pain Is Patient Pain Free?: Yes Risk Factor Assessment Chief Complaint Chief Complaint: PCI w/stent Vital Signs Blood Pressure: 130/78 Pulse Pulse Rate: 79 Hypertension Blood Pressure Sitting - Right Arm: 130/78 Stress Stress: Work-related Obesity Height: 5 ft 8 in Weight:: 298 lb Weight in Pounds: 298.0 lbs Body Mass Index (BMI): 45.3 Physical Inactivity Physical Inactivity: Reg Exercise 30 min/day Risk Stratification Risk Guidelines: Moderate Risk: Risk Factor for Smoking, Risk Factor for Diabetes, Risk Factor for Sedentary Lifestyle and Risk Factor for Depression and Highest Risk: Risk Factor for Dyslipidemia, Risk Factor for Obesity and Risk Factor for Hypertension For Smoking Smoking Risk Guidelines For Dyslipidemia Dyslipidemia Risk Guidelines For Diabetes Mellitus Diabetes Risk Guidelines For Obesity/Overweight Obesity/Overweight Risk Guidelines For Hypertension Hypertension Risk Guidelines For Sedentary Lifestyle Sedentary Lifestyle Risk Guidelines For Depression Depression Risk Guidelines Family History Family History Mother Heart disease Hypertension Diabetes CVA (cerebral vascular accident) Father Heart disease Hypertension Diabetes Motivation Motivation to Participate On a scale of 1 to 10, how prepared are you to commit to attending program?: 9 What do you see as barriers to successfully being able to complete the program?: nothing What do you see as the benefits of succesfully completing the program? In other words, what do you hope to get out of participating in the program?: more energy Are there issues you are dealing with that will interfere with completing the program?: no Do you have a spouse or signficant other, family or friends who will help support you to complete the program?: yes
[2025-06-14 14:10] VITALS: PULSE 79
--- NOTE | 2025-06-14 14:10 | PCM.CR.ITP ---
Diagnosis General Information Admitting Diagnosis: PCI w/stenting Personal Learning Style:: Audio/Visual Barriers to Learning: No Barriers Stage of change r/t lifestyle modifications:: Contemplation Gave educational material for:: Treating Heart Disease, How The Heart Works, What it means to have Heart Disease, How Coronary Artery Disease is Diagnosed, Heart Procedures, What Heart Medications Do, Risk Factors & Modifications, Living an Active Life, Nutrition, Emotions & Heart Disease, Stress Management & Relaxation and Sleep Disorders & Heart Disease Education/Goals Cardiac Rehabilitation Goals Personal Goals: Initial Assessment: Improve management of stress and emotions, Improve energy level, Participate in home exercise program, Improve knowledge of cardiac disease, Improve muscle strength and endurance, Improve diet and eating habits (eat healthier), Control risk factors (learn risk factor modification) and Other goal: Scale for measuring improvement of personal goals Diagnosis & Disease Process Outcomes/Goals: Pt IDs own risk factors & lifestyle modifications by Session 10, Verbalizes symptoms of angina & response by session 3., Pt independently manages and Other Additional Outcomes/Goals: Plan/Interventions: Assist Pt to ID & engage in lifestyle modification to reduce CVD risk, Instruct on individual risk factors, Review symptoms of angina & emergency actions, Review secondary diagnosis & identify educational needs. and Other see comment 30 day Reassessments:: Not Met 30 day Reassessments:: Not Met 30 day Reassessments:: Not Met 30 day Reassessments:: Not Met Final Reassessments:: Not Met Safety Referral to Physical Therapy: No Referral to [facility] Case Management: No Fall Risk Assessed:: Yes Assistive Devices:: None Exercise - Initial Assessment Visit Date of Eval: 06/14/25 (initial eval ) Mets: Pre-: >3 METS for 30 minutes by discharge, >5 METS for 30 minutes by discharge, >7 METS for 30 minutes by discharge and Unable to meet goal due to: (see comment below) Stress Test Resting HR (bpm):: 78 Blood Pressure: 130/78 EKG: NSR w/ nonspecific ST changes Physician Prescribed Exercise Modalities: Treadmill, Rower, Schwindanika Airdyne AD-7, SciFit Stepper, SciFit Pro-II Ergometer and SciFit Lateral Maintenance Machinist Frequency: 3x/week for 12 weeks [36 sessions] Intensity: 60-80% of age predicted maximum heart rate reserve Duration: 30 - 45 minutes Current METSs:: 3 Target Heart Rate:: 98-123 Resting Blood Pressure: 130/78 EKG Type: NSR w/nonspecific ST changes Intervention & Plan Exercise Program Goals: Instruct on personal THR & RPE, Instruct on MET level & personal MET goal, Show patient to take own pulse /validate performance until accurate, Instruct on home exercise and Other additional plan/int Physical Activity Home Exercise Physical Activity - Home Exercise: Safe Exercise, Warm-up, Self-monitoring, Cool-Down, Home Exercise > 30 min Daily and Sitting Time <3 hours/daily Outcomes & Goals Outcomes/Goals: Demonstrates correct Warm-up/exercise Cool-Down (S3) if = 2.5 METs, Verbalizes symptoms of exercise intolerance by Session 3 (S3), Demonstrate safe equipment use (S3) & follows exercise prescrition (6) and Other: See below Intervention & Plan Plan/Intervention: Instruct warm-up & cool-down if exercising at > 2 METs, Instruct on symptoms of exercise intolerance & actions to take, Instruct & monitor on saf, Assess intial functional capacity & safety risk and Other See below Nutrition - Initial Assessment Program Goals Nutrition Program Goals Patient has diagnosis of Hyperlipidemia (ICD E78)?: Yes Visit Date of Eval: 06/14/25 Cholesterol/Lipids (Other Core Measures) Determine presence & major risk factors that modify LDL goal: Hypertension or hypertensive medication, Low HDL cholesterol <40 mg/dL*, Family history of premature CHD in Male < 55 years: female <65 yearsFa and Age men > 45 years; women >/= 55 years Outcomes/Goals: Pt IDs own risk factors & lifestyle modifications by Session 10, Verbalizes symptoms of angina & response by session 3., Pt independently manages and Other Additional Outcomes/Goals: Intervention/Plan: Advocate for lipid panel cholesterol medication if applicable, Instruct on personal lipid levels & lipid goals/NCEP guidelines, Instruct on cholesterol and Other additional plan/int Referral to dietitian:: No Diabetes (Other Core Measures) Diabetes Type: Not Applicable Weight Mgt (Other Care) Height: 5 ft 8 in Weight:: 298 lb BMI: 45.3 Diagnosis Overweight/Obesity BMI> 30% ICD-10 E66: Yes Diagnosis High BMI/Morbid Obesity BMI> 35% ICD-10 Z68: Yes Outcomes/Goals: Pt sets, maintains & shows weight loss goal & trend during rehab and Other additional outcomes/goals Intervention/Plan: Instruct on ideal BMI & set weight loss goal w/patient, Assist pt to ID & incorporate diet changes for weight loss by S9, Refer to Structured Weight Loss program as appropriate, Encourage goal of using 250-300dcal per session for weight loss and Other additional plan/interventions Healthy Eating Habits Will attend diet classes:: Yes Outcomes/Goals:: Consume diet rich in vegs,fruits,whole grain/high fiber,fish,lean meat, Limit sat/trans fats,cholesterol & added salts & sugars and Other additional outcome/goals: Intervention/Plan:: Assess current eating habits and Other Additional plan/interventions Education Gave educational materials for:: Signs & symptoms of hypoglycemia, Signs & symptoms of hyperglycemia, Relate diabetes to coronary artery disease and Healthy eating Core - Initial Assessment Visit Date of Eval: 06/14/25 (initial eval ) Medication Compliance Preventative Medication(s):: Aspirin, Ticagrelor/P2Y12 inhibitor, Statin/lipid and Beta johnny H/O mental health issues: depression, anxiety, or addiction?: No Doesn?t believe in the benefits of treatment?: No Believes medications are unnecessary or harmful?: No Has a concern about medication side effects?: No Expresses concern over the cost of medications?: No Outcomes/Goals: Verbalizes medications,desired effect & common side effects @ DC, Pt self-reports following medication regimen, Keeps card in wallet w/medications listed by DC and Other additional outcome/goals: Interventions/plans: Instruct on medication effects & side effects, Review medication list w/patient every two weeks, Instruct importance of taking meds as ordered & assist problem solving and Other additional Tobacco Use Tobacco Use: Non-smoker Hypertension Hypertension Diagnosis:: Hypertension ICD-10 I10 Resting Blood Pressure:: 130/78 [employer] Hypertension Guidelines Outcomes/Goals: Able to verbalize/achieve optimal blood pressure <130/80, Incorporates diet changes & exercise for blood pressure control by DC and Other additional outcomes/goals Interventions/plan: Instruct on optimal blood pressure, hypertension & medications, Instruct on effects of sodium, alcohol, stress, exercise &hypertension and Other additional plan/interventions Tobacco Cessation Referral Smoking Cessation Referral:: No Individual Education/Counseling:: No Education Schedule Given:: Yes Psychosocial - Initial Assess VIsit Date of Eval: 06/14/25 (initial eval ) History of previous Mental disease:: No (Pt has been more emotional since his stents.) Target Goals Target Goals Psychosocial Test Tool Used:: PHQ-9 Questionnaire phq-9 Severity See PHQ-9 Score: 10 Referral to Behavioral Health PS - Interventions: Yes: Attend Stress Management Classes Outcomes/Goals: See list Psychosocial Outcomes/Goals:: ID's personal stressors & 2 strategies to manage stress by discharge and Other Additional outcome/goals: Intervention/Plan: See List Interventions/Plan:: Assess stressors,coping strategies & signs of derpression on admission, Instruct/assist pt to develop coping & personal stress Mgt strategies, Refer to Behavioral Health if appropriate, Refer to Physician if appropriate, Instruct patient to recognize signs & symptoms of depression, Instruct patient to recog and Other additional plan/intervention Patient Health Questionnaire PHQ-9 Screening Initial Assessment: 1. Little interest or pleasure in doing things: More than half the days 2. Feeling down, depressed, or hopeless: Several days 3. Trouble falling or staying asleep, or sleeping too much: More than half the days 4. Feeling tired or having little energy: More than half the days 5. Poor appetite or overeating: Not at all 6. Feeling bad about yourself -- or that you are a failure or have let yourself or your family down: Several days 7. Trouble concentrating on things, such as reading the newspaper or watching television: Several days 8. Moving or speaking so slowly that other people could have noticed. Or the opposite - being so fidgety or restless that you have been moving around a lot more than usual: Several days 9. Thoughts that you would be better off , or of hurting yourself in some way: Not at all How difficult have these problems made it for you to do your work, take care of things at home, or get along with other people?: Somewhat difficult Total Score: 10 SHEILA-Q SV Test Statements CAD is a disease of the arteries in the heart: I Don't Know Examples of risk factors for heart disease: True Angina is chest pain or discomfort: I Don't Know The benefits of resistance training include: I Don't Know Eating more meat and dairy products: False Anti-platelet medications such as aspirin are important: I Don't Know The only effective way to manage stress: False An exercise warm-up slowly increases heart rate: True Prepared, processed foods usually have high sodium: True Depression is common after a heart attack: I Don't Know The statin medications lower cholesterol: True To control blood pressure, lower the amount of sodium: I Don't Know If someone gets chest discomfort during walking: False Transfats are partially hydrogenated vegetable oils: I Don't Know Sleep apnea that is not treated increases the risk: I Don't Know To control cholesterol, one should become a vegetarian: False Someone knows if he/she is exercising at the right level: I Don't Know Diabetes cannot be prevented with exercise & health eating: I Don't Know Stress is a large risk for heart attack: True A diet that can help lower blood pressure is rich in: True Total Score Total Correct Responses: 10 Self-Efficacy 6-Item Scale Initial Assessment: We would like to know how confident you are in doing certain activities. Please select your confidence level for: Fatigue Select Number: 7 Physical Discomfort or Pain Select Number: 7 Emotional Distress Select Number: 5 Other Symptoms or Health Problems Select Number: 9 Different Tasks and Activities Select Number: 7 Medication Select Number: 9 Total Score:: 7 Nutrition Survey Nutrition Survey Instructions Scoring Instructions Nutrition Survey Initial: Have you lost >10 lbs over the past 2 months without trying?: No Are you following a special diet at home for diabetes, low fat, or low salt?: Yes Are you interested in meeting with a dietitian for help understanding your diet?: No Do you eat less than 3 meals a day?: No Do you eat fatty meats (finley, sausage, ribs, etc), fried foods, desserts, large amounts of salad dressings, margarine, butter, or cheese most days?: No Do you have food allergies? [Enter types in comment field]: No Do you eat in restaurants more than 3 times a week?: No Do you season food with salt, seasoning salt, or garlic salt?: No Do you used canned, boxed, frozen meals, or soups, seasoning packets?: No Total Score:: 1 Exercise - 30-day Assessment Physician Prescribed Exercise Modalities: Treadmill, RowerMonalisane AD-7, SciFit Stepper, SciFit Pro-II Ergometer and SciFit Lateral Maintenance Machinist Exercise - 60-day Assessment Physician Prescribed Exercise Modalities: Treadmill, Rower, Schwinn Airdyne AD-7, SciFit Stepper, SciFit Pro-II Ergometer and SciFit Lateral Maintenance Machinist Exercise - 90-day Assessment Physician Prescribed Exercise Modalities: Treadmill, Rower, Schwinn Airdyne AD-7, SciFit Stepper, SciFit Pro-II Ergometer and SciFit Lateral Maintenance Machinist Exercise - Final/Discharge Physician Prescribed Exercise Modalities: Treadmill, Rower, Schwinn Airdyne AD-7, SciFit Stepper, SciFit Pro-II Ergometer and SciFit Lateral Maintenance Machinist Frequency: 3x/week for 12 weeks [36 sessions] Intensity: 60-80% of age predicted maximum heart rate reserve Current METSs:: 3 Target Heart Rate:: 98-123 Nutrition - 30-Day Assessment Weight Mgt (Other Care) Height: 5 ft 8 in Weight:: 298 lb BMI: 45.3 Nutrition - 60-Day Assessment Weight Mgt (Other Care) Height: 5 ft 8 in Weight:: 298 lb BMI: 45.3 Core - Final Assessment Hypertension Resting Blood Pressure:: 130/78 [employer] Hypertension Guidelines Core - 60-Day Assessment Hypertension Resting Blood Pressure:: 130/78 [employer] Hypertension Guidelines Psychosocial - 30-Day Assess Target Goals Target Goals Referral to Behavioral Health PS - Interventions: Yes: Attend Stress Management Classes Psychosocial - 60-Day Assess Target Goals Target Goals Referral to Behavioral Health PS - Interventions: Yes: Attend Stress Management Classes Psychosocial - 90-Day Assess Target Goals Target Goals Referral to Behavioral Health PS - Interventions: Yes: Attend Stress Management Classes Psychosocial - Final Assessmen Target Goals Target Goals Psychosocial Test phq-9 Severity See PHQ-9 Score: 10 Referral to Behavioral Health PS - Interventions: Yes: Attend Stress Management Classes Nutrition - 90-Day Assessment Weight Mgt (Other Care) Height: 5 ft 8 in Weight:: 298 lb BMI: 45.3 Nutrition - Final Assessment Program Goals Patient has diagnosis of Hyperlipidemia (ICD E78)?: Yes Weight Mgt (Other Care) Height: 5 ft 8 in Weight:: 298 lb BMI: 45.3
[2025-06-14 14:22] VITALS: BMI 45.3
[2025-06-14 14:26] VITALS: BP 130/78
[2025-06-14 14:57] VITALS: BP 130/78; BMI 45.3
== END | disposition home or self-care (01) ==
PROVIDERS: PCP Family Medicine; Referring Provider Internal Medicine Cardiovascular Disease; Visit Provider Internal Medicine Cardiovascular Disease
DX: I25.2 Old myocardial infarction (principal); E66.01 Morbid (severe) obesity due to excess calories; Z68.42 Body mass index [BMI] 45.0-49.9, adult; I10 Essential (primary) hypertension; I25.10 Atherosclerotic heart disease of native coronary artery without angina pectoris; E78.00 Pure hypercholesterolemia, unspecified; Z95.5 Presence of coronary angioplasty implant and graft; Z79.82 Long term (current) use of aspirin; Z79.899 Other long term (current) drug therapy

== ENCOUNTER 2025-07-09 08:00 | Outpatient (RCR) | payer BC, SELFPAY ==
[2025-06-14 14:57] VITALS: BMI 45.3
== END 2025-07-11 23:59 ==
LOC: CR 08:00
PROVIDERS: PCP Family Medicine; Referring Provider Internal Medicine Cardiovascular Disease; Visit Provider Internal Medicine Cardiovascular Disease
DX: Z95.5 Presence of coronary angioplasty implant and graft (principal); I25.10 Atherosclerotic heart disease of native coronary artery without angina pectoris; I21.4 Non-ST elevation (NSTEMI) myocardial infarction; R03.0 Elevated blood-pressure reading, without diagnosis of hypertension; R07.9 Chest pain, unspecified; E78.00 Pure hypercholesterolemia, unspecified
CPT/HCPCS: 93798

== ENCOUNTER → 2025-07-23 | Outpatient (CLI) | payer BC, SELFPAY ==
[2025-06-14 14:57] VITALS: BMI 45.3
== END | disposition home or self-care (01) ==
LOC: SL 09:51
PROVIDERS: PCP Family Medicine; Referring Provider Physician Assistant Medical; Visit Provider Physician Assistant Medical
DX: G47.30 Sleep apnea, unspecified (principal); R06.00 Dyspnea, unspecified
CPT/HCPCS: 95806

== ENCOUNTER 2025-08-09 08:00 | Outpatient (RCR) | payer BC, SELFPAY ==
[2025-06-14 14:57] VITALS: BMI 45.3
--- NOTE | 2025-07-13 08:56 | CR.ITP_ITS ---
Exercise - Initial Assessment Visit Session #:: 9 Physician Prescribed Exercise Modalities: Treadmill, Schwinn Airdyne AD-7 and SciFit Stepper Nutrition - Initial Assessment Weight Mgt (Other Care) Height: 5 ft 8 in Weight:: 292 lb 8 oz BMI: 44.4 BMI (Report if calculated above): 44 Psychosocial - Initial Assess Target Goals Target Goals Referral to Behavioral Health PS - Interventions: Yes: Attend Stress Management Classes Patient Health Questionnaire PHQ-9 Screening 30-Day Re-eval Assessment: 1. Little interest or pleasure in doing things: More than half the days 2. Feeling down, depressed, or hopeless: Several days 3. Trouble falling or staying asleep, or sleeping too much: More than half the days 4. Feeling tired or having little energy: More than half the days 5. Poor appetite or overeating: Not at all 6. Feeling bad about yourself -- or that you are a failure or have let yourself or your family down: Several days 7. Trouble concentrating on things, such as reading the newspaper or watching television: Several days 8. Moving or speaking so slowly that other people could have noticed. Or the opposite - being so fidgety or restless that you have been moving around a lot more than usual: Several days 9. Thoughts that you would be better off , or of hurting yourself in some way: Not at all How difficult have these problems made it for you to do your work, take care of things at home, or get along with other people?: Somewhat difficult Total Score: 10 Self-Efficacy 6-Item Scale 30-Day Re-eval Assessment: We would like to know how confident you are in doing certain activities. P lease select your confidence level for: Fatigue Select Number: 7 Physical Discomfort or Pain Select Number: 7 Emotional Distress Select Number: 5 Other Symptoms or Health Problems Select Number: 9 Different Tasks and Activities Select Number: 7 Medication Select Number: 9 Total Score:: 7 Nutrition Survey Nutrition Survey Instructions Scoring Instructions Exercise - 30-day Assessment Visit Date of Eval: 07/13/25 Session #:: 9 Physician Prescribed Exercise Modalities: Treadmill, Schwinn Airdyne AD-7 and SciFit Stepper Frequency: 3x/week for 12 weeks [36 sessions] Intensity: 60-80% of age predicted maximum heart rate reserve Duration: 30 - 45 minutes METs - Progression 0.5-1.0 weekly:: 0.5-1.0 Current METSs:: 4 Target Heart Rate:: 98-131 Target RPE 12-16:: 12-16 Current RPE:: 12 Maximum Excercise HR:: 104 Resting Blood Pressure: 122/74 Maximum Exercise Blood Pressure: 128/84 EKG Type: NST to ST with occ PVCs Current Physical Activity or Exercising minutes: 30-45 Outcomes & Goals Goals:: Verbalizes understanding of THR, RPE & goal METS by session 6, Documents in home exercise log/reports 30 min aerobic 5 day/wk by DC and Demonstrates accurate pulse taking by DC Intervention & Plan Exercise Program Goals: Instruct on personal THR & RPE, Instruct on MET level & personal MET goal, Show patient to take own pulse /validate performance until accurate and Instruct on home exercise 30-day Reassessments 30 day Reassessments:: Progressing Reassessment Notes & Comments:: Pt utilizing RPE scale correctly, pt instructed on MET goal and how to take own pulse. Physical Activity Home Exercise Physical Activity - Home Exercise: Safe Exercise, Warm-up, Self-monitoring, Co ol-Down, Home Exercise > 30 min Daily and Sitting Time <3 hours/daily Outcomes & Goals Outcomes/Goals: Demonstrates correct Warm-up/exercise Cool-Down (S3) if = 2.5 METs, Verbalizes symptoms of exercise intolerance by Session 3 (S3) and Demonstrate safe equipment use (S3) & follows exercise prescrition (6) Intervention & Plan Plan/Intervention: Instruct warm-up & cool-down if exercising at > 2 METs, Instruct on symptoms of exercise intolerance & actions to take, Instruct & monitor on saf and Assess intial functional capacity & safety risk Comment: Pt instructed on proper warm up and cool down, done with min guidance 30-day Reassessments 30 day Reassessments:: Progressing Exercise - 60-day Assessment Physician Prescribed Exercise Modalities: Treadmill, Schwinn Airdyne AD-7 and SciFit Stepper Exercise - 90-day Assessment Physician Prescribed Exercise Modalities: Treadmill, Schwinn Airdyne AD-7 and SciFit Stepper Exercise - Final/Discharge Physician Prescribed Exercise Modalities: Treadmill, Schwinn Airdyne AD-7 and SciFit Stepper Nutrition - 30-Day Assessment Program Goals Nutrition Program Goals Patient has diagnosis of Hyperlipidemia (ICD E78)?: Yes Visit Date of Eval: 07/13/25 Session #:: 9 Cholesterol/Lipids (Other Core Measures) Triglycerides (mg/dL): 98 Total Cholesterol (mg/dL): 203 LDL Cholesterol (mg/dL): 137 HDL Cholesterol (mg/dL): 47 Lipid Medication: rosuvastatin 20mg QHS, ezetimibe 10mg QD Determine presence & major risk factors that modify LDL goal: Cigarette smoking, Hypertension or hypertensive medication, Low HDL cholesterol <40 mg/dL*, Family history of premature CHD in Male < 55 years: female <65 yearsFa and Age men > 45 years; women >/= 55 years Outcomes/Goals: Pt IDs own risk factors & lifestyle modifications by Session 10, Verbalizes symptoms of angina & response by session 3. and Pt independently manages Intervention/Plan: Advocate for lipid panel cholesterol medication if applicable, Instruct on personal lipid levels & lipid goals/NCEP guidelines and Instruct on cholesterol 30-day Reassessments:: Progressing Reassessment Notes & Comments:: Pt taking statin/lipid medications as prescribed, pt with recent lipid profile Diabetes (Other Core Measures) Diabetes Type: Not Applicable Weight Mgt (Other Care) Height: 5 ft 8 in Weight:: 292 lb 8 oz BMI: 44.4 BMI (Report if calculated above): 44 Diagnosis Overweight/Obesity BMI> 30% ICD-10 E66: Yes Diagnosis High BMI/Morbid Obesity BMI> 35% ICD-10 Z68: Yes Outcomes/Goals: Pt sets, maintains & shows weight loss goal & trend during rehab Intervention/Plan: Instruct on ideal BMI & set weight loss goal w/patient, Assist pt to ID & incorporate diet changes for weight loss by S9, Refer to Structured Weight Loss program as appropriate and Encourage goal of using 250- 300dcal per session for weight loss 30 day Reassessments:: Progressing Reassessment Notes & Comments:: Pt weight loss trending throughout rehab, pt continues to monitor weight weekly in rehab, pt working to incorporate diet and lifestyle changes to support weight loss Healthy Eating Habits Will attend diet classes:: Yes Outcomes/Goals:: Consume diet rich in vegs,fruits,whole grain/high fiber,fish,lean meat and Limit sat/trans fats,cholesterol & added salts & sugars Intervention/Plan:: Assess current eating habits 30-day Reassessments:: Progressing Reassessment Notes & Comments:: Pt to attend diet classes while in rehab. Education Gave educational materials for:: Signs & symptoms of hypoglycemia, Signs & symptoms of hyperglycemia, Relate diabetes to coronary artery disease and Healthy eating Nutrition - 60-Day Assessment Weight Mgt (Other Care) Height: 5 ft 8 in Weight:: 292 lb 8 oz BMI: 44.4 BMI (Report if calculated above): 44 Core - 30-Day Assessment Visit Date of Eval: 07/13/25 Session #:: 9 Medication Compliance Preventative Medication(s):: Aspirin, Ticagrelor/P2Y12 inhibitor, Statin/lipid and Beta johnny H/O mental health issues: depression, anxiety, or addiction?: No Doesn’t believe in the benefits of treatment?: No Believes medications are unnecessary or harmful?: No Has a concern about medication side effects?: No Expresses concern over the cost of medications?: No Outcomes/Goals: Verbalizes medications,desired effect & common side effects @ DC, Pt self-reports following medication regimen and Keeps card in wallet w/medications listed by DC Interventions/plans: Instruct on medication effects & side effects, Review medication list w/patient every two weeks and Instruct importance of taking meds as ordered & assist problem solving 30-day Reassessments:: Progressing Reassessment Notes & Comments:: Pt taking all medications as prescribed. Tobacco Use Tobacco Use: Non-smoker Hypertension Hypertension Diagnosis:: Hypertension ICD-10 I10 Resting Blood Pressure:: 122/74 [place] [employer] Hypertension Guidelines Peak Exercise Blood Pressure:: 128/84 Outcomes/Goals: Able to verbalize/achieve optimal blood pressure <130/80 and Incorporates diet changes & exercise for blood pressure control by DC Interventions/plan: Instruct on optimal blood pressure, hypertension & medications and Instruct on effects of sodium, alcohol, stress, exercise &hypertension 30 day Reassessments:: Progressing Reassessment Notes & Comments:: Pt taking BP medications as prescribed and resting BP currently WNL. Tobacco Cessation Referral Education Schedule Given:: Yes Psychosocial - 30-Day Assess VIsit Date of Eval: 07/13/25 Session #:: 9 History of previous Mental disease:: No History of Emotional Disorders: None Self-reported stressors Other/Comments:: Recent Illness (Pt has been more emotional since his stents) Target Goals Target Goals Psychosocial Test Tool Used:: PHQ-9 Questionnaire phq-9 Severity See PHQ-9 Score: 10 Referral to Behavioral Health PS - Interventions: Yes: Attend Stress Management Classes Outcomes/Goals: See list Psychosocial Outcomes/Goals:: ID's personal stressors & 2 strategies to manage stress by discharge Intervention/Plan: See List Interventions/Plan:: Assess stressors,coping strategies & signs of derpression on admission, Instruct/assist pt to develop coping & personal stress Mgt strategies, Refer to Behavioral Health if appropriate, Refer to Physician if appropriate and Instruct patient to recognize signs & symptoms of depression 30-day Reassessments: 30 day Reassessments:: Progressing Reassessment Notes & Comments:: Pt does not voice any psychosocial concerns or needs at this time. Psychosocial - 60-Day Assess Target Goals Target Goals Referral to Behavioral Health PS - Interventions: Yes: Attend Stress Management Classes Outcomes/Goals: See list Psychosocial Outcomes/Goals:: ID's personal stressors & 2 strategies to manage stress by discharge Psychosocial - 90-Day Assess Target Goals Target Goals Referral to Behavioral Health PS - Interventions: Yes: Attend Stress Management Classes Psychosocial - Final Assessmen Target Goals Target Goals Referral to Behavioral Health PS - Interventions: Yes: Attend Stress Management Classes Nutrition - 90-Day Assessment Weight Mgt (Other Care) Height: 5 ft 8 in Weight:: 292 lb 8 oz BMI: 44.4 BMI (Report if calculated above): 44 Nutrition - Final Assessment Weight Mgt (Other Care) Height: 5 ft 8 in Weight:: 292 lb 8 oz BMI: 44.4 BMI (Report if calculated above): 44
[2025-07-13 09:01] VITALS: BP 122/74
[2025-07-13 09:14] VITALS: BP 122/74; BMI 44.0; BMI 44.4
== END 2025-08-10 23:59 ==
LOC: CR 08:00
PROVIDERS: PCP Family Medicine; Referring Provider Internal Medicine Cardiovascular Disease; Visit Provider Internal Medicine Cardiovascular Disease
DX: Z95.5 Presence of coronary angioplasty implant and graft (principal); I25.10 Atherosclerotic heart disease of native coronary artery without angina pectoris; I21.4 Non-ST elevation (NSTEMI) myocardial infarction; R03.0 Elevated blood-pressure reading, without diagnosis of hypertension; R07.9 Chest pain, unspecified; E78.00 Pure hypercholesterolemia, unspecified
CPT/HCPCS: 93798

== ENCOUNTER 2025-09-10 08:00 | Outpatient (RCR) | payer BC, SELFPAY ==
[2025-07-13 09:14] VITALS: BMI 44.4
--- NOTE | 2025-08-11 08:07 | PCM.CR.ITP ---
Exercise - Initial Assessment Physician Prescribed Exercise Modalities: Treadmill, Schwinn Airdyne AD-7 and SciFit Stepper Nutrition - Initial Assessment Weight Mgt (Other Care) Height: 5 ft 8 in Weight:: 287 lb BMI: 43.6 Core - Initial Assessment Hypertension Resting Blood Pressure:: 102/70 [place] [employer] Hypertension Guidelines Psychosocial - Initial Assess Referral to Behavioral Health PS - Interventions: Yes: Attend Stress Management Classes Exercise - 30-day Assessment Physician Prescribed Exercise Modalities: Treadmill, Schwinn Airdyne AD-7 and SciFit Stepper Exercise - 60-day Assessment Visit Date of Eval: 08/11/25 Session #:: 22 Physician Prescribed Exercise Modalities: Treadmill, Schwinn Airdyne AD-7 and SciFit Stepper Frequency: 3x/week for 12 weeks [36 sessions] Intensity: 60-80% of age predicted maximum heart rate reserve Duration: 30 - 45 minutes Current METSs:: 6.6 Target Heart Rate:: 98-139 Current RPE:: 12-12.5 Maximum Excercise HR:: 141 Resting Blood Pressure: 94/60 Maximum Exercise Blood Pressure: 144/90 EKG Type: NSR-ST w/ periods od sinus arrythmia w/ inverted t wave. Rare PAC/PVC Outcomes & Goals Goals:: Verbalizes understanding of THR, RPE & goal METS by session 6, Documents in home exercise log/reports 30 min aerobic 5 day/wk by DC, Demonstrates accurate pulse taking by DC and Other additional outcome/goals: see below Intervention & Plan Exercise Program Goals: Instruct on personal THR & RPE, Instruct on MET level & personal MET goal, Show patient to take own pulse /validate performance until accurate, Instruct on home exercise and Other additional plan/int Physical Activity Home Exercise Physical Activity - Home Exercise: Safe Exercise, Warm-up, Self-monitoring, Cool-Down, Home Exercise > 30 min Daily and Sitting Time <3 hours/daily Outcomes & Goals Outcomes/Goals: Demonstrates correct Warm-up/exercise Cool-Down (S3) if = 2.5 METs, Verbalizes symptoms of exercise intolerance by Session 3 (S3), Demonstrate safe equipment use (S3) & follows exercise prescrition (6) and Other: See below Intervention & Plan Plan/Intervention: Instruct warm-up & cool-down if exercising at > 2 METs, Instruct on symptoms of exercise intolerance & actions to take, Instruct & monitor on saf, Assess intial functional capacity & safety risk and Other See below 30-day Reassessments 30 day Reassessments:: Progressing Reassessment Notes & Comments:: Proper warm up and cool down demonstrated and explained to pt. Pt is able to return demonstration in their daily sessions. Exercise - 90-day Assessment Physician Prescribed Exercise Modalities: Treadmill, Schwinn Airdyne AD-7 and SciFit Stepper Exercise - Final/Discharge Physician Prescribed Exercise Modalities: Treadmill, Schwinn Airdyne AD-7 and SciFit Stepper Nutrition - 30-Day Assessment Weight Mgt (Other Care) Height: 5 ft 8 in Weight:: 287 lb BMI: 43.6 Nutrition - 60-Day Assessment Program Goals Nutrition Program Goals Patient has diagnosis of Hyperlipidemia (ICD E78)?: Yes Visit Date of Eval: 08/11/25 Session #:: 22 (Nutrition survey score of 1) Cholesterol/Lipids (Other Core Measures) Determine presence & major risk factors that modify LDL goal: Hypertension or hypertensive medication, Low HDL cholesterol <40 mg/dL*, Family history of premature CHD in Male < 55 years: female <65 yearsFa and Age men > 45 years; women >/= 55 years Outcomes/Goals: Pt IDs own risk factors & lifestyle modifications by Session 10, Verbalizes symptoms of angina & response by session 3., Pt independently manages and Other Additional Outcomes/Goals: Intervention/Plan: Advocate for lipid panel cholesterol medication if applicable, Instruct on personal lipid levels & lipid goals/NCEP guidelines, Instruct on cholesterol and Other additional plan/int Diabetes (Other Core Measures) Diabetes Type: Not Applicable Weight Mgt (Other Care) Height: 5 ft 8 in Weight:: 287 lb BMI: 43.6 Diagnosis Overweight/Obesity BMI> 30% ICD-10 E66: Yes Diagnosis High BMI/Morbid Obesity BMI> 35% ICD-10 Z68: Yes Outcomes/Goals: Pt sets, maintains & shows weight loss goal & trend during rehab and Other additional outcomes/goals Intervention/Plan: Instruct on ideal BMI & set weight loss goal w/patient, Assist pt to ID & incorporate diet changes for weight loss by S9, Refer to Structured Weight Loss program as appropriate, Encourage goal of using 250-300dcal per session for weight loss and Other additional plan/interventions 30 day Reassessments:: Progressing Reassessment Notes & Comments:: Pt continues to lose weight. Pt has lost 5.5 lbs in the past 30 days. Pt is scheduled to attend attend nutrition class. Samuel continue to encourage and monitor weights. Healthy Eating Habits Will attend diet classes:: Yes Outcomes/Goals:: Consume diet rich in vegs,fruits,whole grain/high fiber,fish,lean meat, Limit sat/trans fats,cholesterol & added salts & sugars and Other additional outcome/goals: Intervention/Plan:: Assess current eating habits and Other Additional plan/interventions 30-day Reassessments:: Progressing Reassessment Notes & Comments:: Pt is scheduled to attend nutrition classes. Heart healthy low sodium diet encouraged. Education Gave educational materials for:: Signs & symptoms of hypoglycemia, Signs & symptoms of hyperglycemia, Relate diabetes to coronary artery disease and Healthy eating Core - Final Assessment Hypertension Resting Blood Pressure:: 102/70 [place] [employer] Hypertension Guidelines Core - 60-Day Assessment Visit Date of Eval: 08/11/25 Session #:: 22 Medication Compliance Preventative Medication(s):: Aspirin, Ticagrelor/P2Y12 inhibitor, Statin/lipid and Beta johnny H/O mental health issues: depression, anxiety, or addiction?: No Doesn’t believe in the benefits of treatment?: No Believes medications are unnecessary or harmful?: No Has a concern about medication side effects?: No Expresses concern over the cost of medications?: No Outcomes/Goals: Verbalizes medications,desired effect & common side effects @ DC, Pt self-reports following medication regimen, Keeps card in wallet w/medications listed by DC and Other additional outcome/goals: Interventions/plans: Instruct on medication effects & side effects, Review medication list w/patient every two weeks, Instruct importance of taking meds as ordered & assist problem solving and Other additional 30-day Reassessments:: Progressing Reassessment Notes & Comments:: Pt is currently taking meds as prescribed. Pt to attend cardiac meds class. Tobacco Use Tobacco Use: Non-smoker Hypertension Resting Blood Pressure:: 94/60 Resting Blood Pressure:: 102/70 [place] [employer] Hypertension Guidelines Peak Exercise Blood Pressure:: 144/90 Outcomes/Goals: Able to verbalize/achieve optimal blood pressure <130/80, Incorporates diet changes & exercise for blood pressure control by DC and Other additional outcomes/goals Interventions/plan: Instruct on optimal blood pressure, hypertension & medications, Instruct on effects of sodium, alcohol, stress, exercise &hypertension and Other additional plan/interventions 30 day Reassessments:: Met Reassessment Notes & Comments:: Pt's BP's are within AHA normal limits. Will continue to monitor and report to pt's physician if necessary. Tobacco Cessation Referral Smoking Cessation Referral:: No Individual Education/Counseling:: No Education Schedule Given:: Yes Psychosocial - 30-Day Assess Referral to Behavioral Health PS - Interventions: Yes: Attend Stress Management Classes Outcomes/Goals: See list Psychosocial Outcomes/Goals:: ID's personal stressors & 2 strategies to manage stress by discharge and Other Additional outcome/goals: Psychosocial - 60-Day Assess VIsit Date of Eval: 08/11/25 Session #:: 22 History of previous Mental disease:: No Psychosocial Test Tool Used:: PHQ-9 Questionnaire phq-9 Severity See PHQ-9 Score: 10 Referral to Behavioral Health PS - Interventions: Yes: Attend Stress Management Classes Outcomes/Goals: See list Psychosocial Outcomes/Goals:: ID's personal stressors & 2 strategies to manage stress by discharge and Other Additional outcome/goals: Intervention/Plan: See List Interventions/Plan:: Assess stressors,coping strategies & signs of derpression on admission, Instruct/assist pt to develop coping & personal stress Mgt strategies, Refer to Behavioral Health if appropriate, Refer to Physician if appropriate, Instruct patient to recognize signs & symptoms of depression, Instruct patient to recog and Other additional plan/intervention 30-day Reassessments: 30 day Reassessments:: Progressing Reassessment Notes & Comments:: Pt denies any psychosocial issues at this time. Pt to attend stress management class. Will reassess every 30 days. Psychosocial - 90-Day Assess Referral to Behavioral Health PS - Interventions: Yes: Attend Stress Management Classes Psychosocial - Final Assessmen Referral to Behavioral Health PS - Interventions: Yes: Attend Stress Management Classes Nutrition - 90-Day Assessment Weight Mgt (Other Care) Height: 5 ft 8 in Weight:: 287 lb BMI: 43.6 Nutrition - Final Assessment Weight Mgt (Other Care) Height: 5 ft 8 in Weight:: 287 lb BMI: 43.6
[2025-08-11 08:23] VITALS: BP 102/70; BP 94/60; BMI 43.6
--- NOTE | 2025-09-09 14:08 | CR.ITP_ITS ---
Exercise - Initial Assessment Physician Prescribed Exercise Modalities: Treadmill, Rower, Schwinn Airdyne AD-7 and SciFit Stepper Nutrition - Initial Assessment Weight Mgt (Other Care) Height: 5 ft 8 in Weight:: 277 lb BMI: 42.1 Psychosocial - Initial Assess Referral to Behavioral Health PS - Interventions: Yes: Attend Stress Management Classes Exercise - 30-day Assessment Physician Prescribed Exercise Modalities: Treadmill, Rower, Schwinn Airdyne AD-7 and SciFit Stepper Exercise - 60-day Assessment Physician Prescribed Exercise Modalities: Treadmill, Rower, Schwinn Airdyne AD-7 and SciFit Stepper Exercise - 90-day Assessment Visit Date of Eval: 09/09/25 Session #:: 34 Physician Prescribed Exercise Modalities: Treadmill, Rower, Schwinn Airdyne AD-7 and SciFit Stepper Frequency: 3x/week for 12 weeks [36 sessions] Intensity: 60-80% of age predicted maximum heart rate reserve Duration: 30 - 45 minutes Current METSs:: 7.7 Target Heart Rate:: 98-139 Current RPE:: 12-13 Maximum Excercise HR:: 155 Resting Blood Pressure: 108/62 Maximum Exercise Blood Pressure: 166/78 EKG Type: NSR-ST with rare PAC Outcomes & Goals Goals:: Verbalizes understanding of THR, RPE & goal METS by session 6, Documents in home exercise log/reports 30 min aerobic 5 day/wk by DC, Demonstrates accurate pulse taking by DC and Other additional outcome/goals: see below Intervention & Plan Exercise Program Goals: Instruct on personal THR & RPE, Instruct on MET level & personal MET goal, Show patient to take own pulse /validate performance until accurate, Instruct on home exercise and Other additional plan/int Physical Activity Home Exercise Physical Activity - Home Exercise: Safe Exercise, Warm-up, Self-monitoring, Cool-Down, Home Exercise > 30 min Daily and Sitting Time <3 hours/daily Outcomes & Goals Outcomes/Goals: Demonstrates correct Warm-up/exercise Cool-Down (S3) if = 2.5 METs, Verbalizes symptoms of exercise intolerance by Session 3 (S3), Demonstrate safe equipment use (S3) & follows exercise prescrition (6) and Other: See below Intervention & Plan Plan/Intervention: Instruct warm-up & cool-down if exercising at > 2 METs, Instruct on symptoms of exercise intolerance & actions to take, Instruct & monitor on saf, Assess intial functional capacity & safety risk and Other See below 30-day Reassessments 30 day Reassessments:: Met Reassessment Notes & Comments:: Pt has 2 sessions remaining. Pt has met his exercise goals. Pt was working at 7.7 METS. Pt will be given his exercise prescription as well as community resources to continue his exercise. Pt understands the importance of warming up and cooling down. Pt also understands symptoms of exercise intolerance and how to exercise safely. Exercise - Final/Discharge Physician Prescribed Exercise Modalities: Treadmill, Rower, Schwramana Airdyne AD-7 and SciFit Stepper Nutrition - 30-Day Assessment Weight Mgt (Other Care) Height: 5 ft 8 in Weight:: 277 lb BMI: 42.1 Nutrition - 60-Day Assessment Weight Mgt (Other Care) Height: 5 ft 8 in Weight:: 277 lb BMI: 42.1 Core - 30-Day Assessment Hypertension [place] [employer] Hypertension Guidelines Reassessment Notes & Comments:: Pt's BP's are within AHA normal limits. Will continue to monitor and report to pt's physician if necessary. Core - Final Assessment Hypertension [place] [employer] Hypertension Guidelines Reassessment Notes & Comments:: Pt's BP's are within AHA normal limits. Will continue to monitor and report to pt's physician if necessary. Core - 90 Day Assessment Visit Date of Eval: 09/09/25 Session #:: 34 Medication Compliance Preventative Medication(s):: Aspirin, Ticagrelor/P2Y12 inhibitor, Statin/lipid and Beta johnny H/O mental health issues: depression, anxiety, or addiction?: No Doesn’t believe in the benefits of treatment?: No Believes medications are unnecessary or harmful?: No Has a concern about medication side effects?: No Expresses concern over the cost of medications?: No Outcomes/Goals: Verbalizes medications,desired effect & common side effects @ DC, Pt self-reports following medication regimen, Keeps card in wallet w/medications listed by DC and Other additional outcome/goals: Interventions/plans: Instruct on medication effects & side effects, Review medication list w/patient every two weeks, Instruct importance of taking meds as ordered & assist problem solving and Other additional 30-day Reassessments:: Met Reassessment Notes & Comments:: Pt is currently taking meds as prescribed. Pt has attended cardiac meds class. Tobacco Use Tobacco Use: Non-smoker Hypertension Resting Blood Pressure:: 108/62 [place] [employer] Hypertension Guidelines Peak Exercise Blood Pressure:: 166/78 Outcomes/Goals: Able to verbalize/achieve optimal blood pressure <130/80, Incorporates diet changes & exercise for blood pressure control by DC and Other additional outcomes/goals Interventions/plan: Instruct on optimal blood pressure, hypertension & medications, Instruct on effects of sodium, alcohol, stress, exercise &hypertension and Other additional plan/interventions 30 day Reassessments:: Met Reassessment Notes & Comments:: Pt's BP's are within AHA normal limits. Will continue to monitor and report to pt's physician if necessary. Tobacco Cessation Referral Smoking Cessation Referral:: No Individual Education/Counseling:: No Education Schedule Given:: Yes Psychosocial - 30-Day Assess Referral to Behavioral Health PS - Interventions: Yes: Attend Stress Management Classes Psychosocial - 60-Day Assess Referral to Behavioral Health PS - Interventions: Yes: Attend Stress Management Classes Psychosocial - 90-Day Assess VIsit Date of Eval: 09/09/25 Session #:: 34 History of previous Mental disease:: No Psychosocial Test Tool Used:: [employer] QOL Cardiac and PHQ-9 Questionnaire phq-9 Severity See PHQ-9 Score: 10 Referral to Behavioral Health PS - Interventions: Yes: Attend Stress Management Classes Outcomes/Goals: See list Psychosocial Outcomes/Goals:: ID's personal stressors & 2 strategies to manage stress by discharge and Other Additional outcome/goals: Intervention/Plan: See List Interventions/Plan:: Assess stressors,coping strategies & signs of derpression on admission, Instruct/assist pt to develop coping & personal stress Mgt strategies, Refer to Behavioral Health if appropriate, Refer to Physician if appropriate, Instruct patient to recognize signs & symptoms of depression, Instruct patient to recog and Other additional plan/intervention 30-day Reassessments: 30 day Reassessments:: Met Reassessment Notes & Comments:: Pt denies any psychosocial issues at this time. Pt has attended stress management class. Psychosocial - Final Assessmen Referral to Behavioral Health PS - Interventions: Yes: Attend Stress Management Classes Nutrition - 90-Day Assessment Program Goals Nutrition Program Goals Patient has diagnosis of Hyperlipidemia (ICD E78)?: Yes Visit Date of Eval: 09/09/25 Session #:: 34 Cholesterol/Lipids (Other Core Measures) Determine presence & major risk factors that modify LDL goal: Hypertension or hypertensive medication, Low HDL cholesterol <40 mg/dL*, Family history of premature CHD in Male < 55 years: female <65 yearsFa and Age men > 45 years; women >/= 55 years Outcomes/Goals: Pt IDs own risk factors & lifestyle modifications by Session 10, Verbalizes symptoms of angina & response by session 3., Pt independently manages and Other Additional Outcomes/Goals: Intervention/Plan: Advocate for lipid panel cholesterol medication if applicable, Instruct on personal lipid levels & lipid goals/NCEP guidelines, Instruct on cholesterol and Other additional plan/int Referral to dietitian:: No (Nutrition survey score of 1.) Diabetes (Other Core Measures) Diabetes Type: Not Applicable Weight Mgt (Other Care) Height: 5 ft 8 in Weight:: 277 lb BMI: 42.1 Diagnosis Overweight/Obesity BMI> 30% ICD-10 E66: Yes Diagnosis High BMI/Morbid Obesity BMI> 35% ICD-10 Z68: Yes Outcomes/Goals: Pt sets, maintains & shows weight loss goal & trend during rehab and Other additional outcomes/goals Intervention/Plan: Instruct on ideal BMI & set weight loss goal w/patient, Assist pt to ID & incorporate diet changes for weight loss by S9, Refer to Structured Weight Loss program as appropriate, Encourage goal of using 250-300dc al per session for weight loss and Other additional plan/interventions 30 day Reassessments:: Progressing Reassessment Notes & Comments:: Pt has lost another 7.5 lbs in the last 30 days. Pt has attended nutrition class. Pt understands the benefits of a hearth healthy low sodium diet. Healthy Eating Habits Will attend diet classes:: Yes Outcomes/Goals:: Consume diet rich in vegs,fruits,whole grain/high fiber,fish,lean meat, Limit sat/trans fats,cholesterol & added salts & sugars and Other additional outcome/goals: Intervention/Plan:: Assess current eating habits and Other Additional plan/interventions 30-day Reassessments:: Met Reassessment Notes & Comments:: Pt has attended nutrition class. Pt understands the benefits of a hearth healthy low sodium diet. Education Gave educational materials for:: Signs & symptoms of hypoglycemia, Signs & symptoms of hyperglycemia, Relate diabetes to coronary artery disease and Healthy eating Nutrition - Final Assessment Weight Mgt (Other Care) Height: 5 ft 8 in Weight:: 277 lb BMI: 42.1
[2025-09-09 14:13] VITALS: BP 108/62
[2025-09-09 14:25] VITALS: BP 108/62; BMI 42.1
== END 2025-09-10 23:59 ==
LOC: CR 08:00
PROVIDERS: PCP Family Medicine; Referring Provider Internal Medicine Cardiovascular Disease; Visit Provider Internal Medicine Cardiovascular Disease
DX: Z95.5 Presence of coronary angioplasty implant and graft (principal); I25.10 Atherosclerotic heart disease of native coronary artery without angina pectoris; I21.4 Non-ST elevation (NSTEMI) myocardial infarction; R03.0 Elevated blood-pressure reading, without diagnosis of hypertension; R07.9 Chest pain, unspecified; E78.00 Pure hypercholesterolemia, unspecified
CPT/HCPCS: 93798

== ENCOUNTER 2025-09-13 07:36 | Outpatient (RCR) | payer BC, SELFPAY ==
[2025-09-09 14:25] VITALS: BMI 42.1
--- NOTE | 2025-10-04 09:54 | PCM.CR.ITP ---
Exercise - Initial Assessment Physician Prescribed Exercise Modalities: Treadmill, Monalisa Soto AD-7 and SciFit Stepper Nutrition - Initial Assessment Program Goals Nutrition Program Goals Patient has diagnosis of Hyperlipidemia (ICD E78)?: Yes Weight Mgt (Other Care) Height: 5 ft 8 in Weight:: 277 lb BMI: 42.1 Core - Initial Assessment Hypertension Resting Blood Pressure:: 126/68 [place] [employer] Hypertension Guidelines Psychosocial - Initial Assess Psychosocial Test phq-9 Severity See PHQ-9 Score: 10 Patient Health Questionnaire PHQ-9 Screening Discharge Assessment: 1. Little interest or pleasure in doing things: More than half the days 2. Feeling down, depressed, or hopeless: Several days 3. Trouble falling or staying asleep, or sleeping too much: More than half the days 4. Feeling tired or having little energy: More than half the days 5. Poor appetite or overeating: Not at all 6. Feeling bad about yourself -- or that you are a failure or have let yourself or your family down: Several days 7. Trouble concentrating on things, such as reading the newspaper or watching television: Several days 8. Moving or speaking so slowly that other people could have noticed. Or the opposite - being so fidgety or restless that you have been moving around a lot more than usual: Several days 9. Thoughts that you would be better off , or of hurting yourself in some way: Not at all How difficult have these problems made it for you to do your work, take care of things at home, or get along with other people?: Somewhat difficult Total Score: 10 Nutrition Survey Nutrition Survey Discharge: Have you lost >10 lbs over the past 2 months without trying?: No Are you following a special diet at home for diabetes, low fat, or low salt?: Yes Are you interested in meeting with a dietitian for help understanding your diet?: No Do you eat less than 3 meals a day?: No Do you eat fatty meats (finley, sausage, ribs, etc), fried foods, desserts, large amounts of salad dressings, margarine, butter, or cheese most days?: No Do you have food allergies? [Enter types in comment field]: No Do you eat in restaurants more than 3 times a week?: No Do you season food with salt, seasoning salt, or garlic salt?: No Do you used canned, boxed, frozen meals, or soups, seasoning packets?: No Total Score:: 1 Exercise - 30-day Assessment Physician Prescribed Exercise Modalities: Treadmill, Rower, Schwinn Airdyne AD-7 and SciFit Stepper Exercise - 60-day Assessment Physician Prescribed Exercise Modalities: Treadmill, Rower, Schwinn Airdyne AD-7 and SciFit Stepper Exercise - 90-day Assessment Physician Prescribed Exercise Modalities: Treadmill, Rower, Schwinn Airdyne AD-7 and SciFit Stepper Exercise - Final/Discharge Visit Date of Eval: 10/04/25 Session #:: 36 Physician Prescribed Exercise Modalities: Treadmill, Rower, Schwinn Airdyne AD-7 and SciFit Stepper Frequency: 3x/week for 12 weeks [36 sessions] Intensity: 60-80% of age predicted maximum heart rate reserve Duration: 30 - 45 minutes METs - Progression 0.5-1.0 weekly:: 0.5 Current METSs:: 7.7 Target Heart Rate:: 98-139 Target RPE 12-16:: 12-16 Current RPE:: 13 Maximum Heart Rate:: 141 Resting Blood Pressure: 126/68 Maximum Exercise Blood Pressure: 134/80 EKG Type: nsr to sinus tach, rare pac. Current Physical Activity or Exercising minutes: 30 mins Outcomes & Goals Goals:: Verbalizes understanding of THR, RPE & goal METS by session 6, Documents in home exercise log/reports 30 min aerobic 5 day/wk by DC, Demonstrates accurate pulse taking by DC and Other additional outcome/goals: see below Intervention & Plan Exercise Program Goals: Instruct on personal THR & RPE, Instruct on MET level & personal MET goal, Show patient to take own pulse /validate performance until accurate, Instruct on home exercise and Other additional plan/int 30-day Reassessments 30 day Reassessments:: Met Physical Activity Home Exercise Physical Activity - Home Exercise: Safe Exercise, Warm-up, Self-monitoring, Cool-Down, Home Exercise > 30 min Daily and Sitting Time <3 hours/daily Outcomes & Goals Outcomes/Goals: Demonstrates correct Warm-up/exercise Cool-Down (S3) if = 2.5 METs, Verbalizes symptoms of exercise intolerance by Session 3 (S3), Demonstrate safe equipment use (S3) & follows exercise prescrition (6) and Other: See below Intervention & Plan Plan/Intervention: Instruct warm-up & cool-down if exercising at > 2 METs, Instruct on symptoms of exercise intolerance & actions to take, Instruct & monitor on saf, Assess intial functional capacity & safety risk and Other See below 30-day Reassessments 30 day Reassessments:: Met Reassessment Notes & Comments:: Pt demonstrates safe exercise including adequate warm up and cool down. he accurately rates his exercise difficulty using the RPE scale. educated pt on using the RPE scale to increase his exercise workloads outside of cardiac rehab. educated on signs and symptoms to look for during exercise that would require medical attention. Nutrition - 30-Day Assessment Weight Mgt (Other Care) Height: 5 ft 8 in Weight:: 277 lb BMI: 42.1 Nutrition - 60-Day Assessment Weight Mgt (Other Care) Height: 5 ft 8 in Weight:: 277 lb BMI: 42.1 Core - 30-Day Assessment Hypertension [place] [employer] Hypertension Guidelines Reassessment Notes & Comments:: bp wnl at time of discharge Core - Final Assessment Visit Date of Eval: 10/04/25 Session #:: 36 Medication Compliance Preventative Medication(s):: Aspirin, Ticagrelor/P2Y12 inhibitor, Statin/lipid and Beta johnny H/O mental health issues: depression, anxiety, or addiction?: No Outcomes/Goals: Verbalizes medications,desired effect & common side effects @ DC, Pt self-reports following medication regimen, Keeps card in wallet w/medications listed by DC and Other additional outcome/goals: Interventions/plans: Instruct on medication effects & side effects, Review medication list w/patient every two weeks, Instruct importance of taking meds as ordered & assist problem solving and Other additional 30-day Reassessments:: Met Reassessment Notes & Comments:: reports taking medications as prescribed. no concerns at time of discharge Tobacco Use Tobacco Use: Non-smoker Hypertension Hypertension Diagnosis:: Hypertension ICD-10 I10 Resting Blood Pressure:: 126/68 [place] [employer] Hypertension Guidelines Peak Exercise Blood Pressure:: 134/80 Outcomes/Goals: Able to verbalize/achieve optimal blood pressure <130/80, Incorporates diet changes & exercise for blood pressure control by DC and Other additional outcomes/goals Interventions/plan: Instruct on optimal blood pressure, hypertension & medications, Instruct on effects of sodium, alcohol, stress, exercise &hypertension and Other additional plan/interventions 30 day Reassessments:: Met Reassessment Notes & Comments:: bp wnl at time of discharge Core - 90 Day Assessment Hypertension [place] [employer] Hypertension Guidelines Reassessment Notes & Comments:: bp wnl at time of discharge Core - 60-Day Assessment Hypertension Resting Blood Pressure:: 126/68 [place] [employer] Hypertension Guidelines Psychosocial - Final Assessmen VIsit Date of Eval: 10/04/25 Session #:: 36 History of previous Mental disease:: No Psychosocial Test Tool Used:: PHQ-9 Questionnaire phq-9 Severity See PHQ-9 Score: 10 Outcomes/Goals: See list Psychosocial Outcomes/Goals:: ID's personal stressors & 2 strategies to manage stress by discharge and Other Additional outcome/goals: Intervention/Plan: See List Interventions/Plan:: Assess stressors,coping strategies & signs of derpression on admission, Instruct/assist pt to develop coping & personal stress Mgt strategies, Refer to Behavioral Health if appropriate, Refer to Physician if appropriate, Instruct patient to recognize signs & symptoms of depression, Instruct patient to recog and Other additional plan/intervention 30-day Reassessments: 30 day Reassessments:: Met Reassessment Notes & Comments:: pt attended all recommended stress and emotion management classes offered through rehab. pt plans to continue exercise by walking and utilizing equipment he has at home. Nutrition - 90-Day Assessment Weight Mgt (Other Care) Height: 5 ft 8 in Weight:: 277 lb BMI: 42.1 Nutrition - Final Assessment Program Goals Patient has diagnosis of Hyperlipidemia (ICD E78)?: Yes Visit Date of Assessment:: 10/04/25 Session #:: 36 Cholesterol/Lipids (Other Core Measures) Determine presence & major risk factors that modify LDL goal: Cigarette smoking, Hypertension or hypertensive medication, Low HDL cholesterol <40 mg/dL*, Family history of premature CHD in Male < 55 years: female <65 yearsFa and Age men > 45 years; women >/= 55 years Outcomes/Goals: Pt IDs own risk factors & lifestyle modifications by Session 10, Verbalizes symptoms of angina & response by session 3., Pt independently manages and Other Additional Outcomes/Goals: Intervention/Plan: Advocate for lipid panel cholesterol medication if applicable, Instruct on personal lipid levels & lipid goals/NCEP guidelines, Instruct on cholesterol and Other additional plan/int Referral to dietitian:: No 30-day Reassessments:: Met Reassessment Notes & Comments:: encouraged to get his lipids checked atleast once per year. Diabetes (Other Core Measures) Diabetes Type: Not Applicable Weight Mgt (Other Care) Height: 5 ft 8 in Weight:: 277 lb BMI: 42.1 Diagnosis High BMI/Morbid Obesity BMI> 35% ICD-10 Z68: Yes Outcomes/Goals: Pt sets, maintains & shows weight loss goal & trend during rehab and Other additional outcomes/goals Intervention/Plan: Instruct on ideal BMI & set weight loss goal w/patient, Assist pt to ID & incorporate diet changes for weight loss by S9, Refer to Structured Weight Loss program as appropriate, Encourage goal of using 250-300dcal per session for weight loss and Other additional plan/interventions 30 day Reassessments:: Progressing Reassessment Notes & Comments:: encouraged to continue to weigh weekly and continue to toward goal of losing 1-2lbs/week through diet and exercise. Healthy Eating Habits Will attend diet classes:: Yes Outcomes/Goals:: Consume diet rich in vegs,fruits,whole grain/high fiber,fish,lean meat, Limit sat/trans fats,cholesterol & added salts & sugars and Other additional outcome/goals: Intervention/Plan:: Assess current eating habits and Other Additional plan/interventions 30-day Reassessments:: Met Reassessment Notes & Comments:: nutrition score of 1. low sodium diet encouraged to be continued outside of cardiac rehab. Education Gave educational materials for:: Signs & symptoms of hypoglycemia, Signs & symptoms of hyperglycemia, Relate diabetes to coronary artery disease and Healthy eating
[2025-10-04 10:02] VITALS: BP 126/68
[2025-10-04 10:13] VITALS: BP 126/68; BMI 42.1
== END 2025-10-10 23:59 ==
LOC: CR 07:36
PROVIDERS: PCP Family Medicine; Referring Provider Internal Medicine Cardiovascular Disease; Visit Provider Internal Medicine Cardiovascular Disease
DX: Z95.5 Presence of coronary angioplasty implant and graft (principal); I25.10 Atherosclerotic heart disease of native coronary artery without angina pectoris; I21.4 Non-ST elevation (NSTEMI) myocardial infarction; R03.0 Elevated blood-pressure reading, without diagnosis of hypertension; R07.9 Chest pain, unspecified; E78.00 Pure hypercholesterolemia, unspecified
CPT/HCPCS: 93798